=== PATIENT | female | born 1970 | race Hispanic/Latino ===

== ENCOUNTER 2017-07-29 16:16 | Emergency (ER) | payer MEDICAID ==
[~2017-07-29 16:16] MED LIST: ALBU8.5H3 IH; AMOX-429 PO; BUDE10.2 IH; IPRA3AMP4 IH; MONT10TA21 PO; PRED20TA3 PO
[2017-07-29] MEDS ORDERED: DEXAMETHASONE SOD PHOSPHATE 10MG/ML 1ML VIAL ONE (16:45)
== END 2017-07-29 18:10 | disposition home or self-care (01) ==
LOC: EDH 16:16
DX: J45.909 Unspecified asthma, uncomplicated (principal); Z88.1 Allergy status to other antibiotic agents
CPT/HCPCS: 96372; 99283; J1100

== ENCOUNTER 2017-09-25 22:08 | Emergency (ER) | payer MEDICAID ==
[~2017-09-25 22:08] MED LIST changes: +IPRA3AMP24 IH; -IPRA3AMP4 IH
[2017-09-25] MEDS ORDERED: PREDNISONE 20 MG TABLET ONE (23:02)
[2017-09-25] MEDS ORDERED: IPRATROPIUM/ALBUTEROL SULFATE 3 ML SOLUTION IH ONE (23:02)
[2017-09-25 23:09] LABS: BASOPHILS % (AUTO) 0.6 % (0.0-5.0); HEMATOCRIT 33.1 % (36-48); LYMPHOCYTES % (AUTO) 18.6 % (21.0-51.0); MEAN CORPUSCULAR HEMOGLOBIN 24.5 pg (27.0-33.0); MEAN CORPUSCULAR HGB CONC 32.4 g/dL (32.0-36.0); MEAN CORPUSCULAR VOLUME 75.8 fL (79-99); MONOCYTES % (AUTO) 5.9 % (3.0-13.0); NEUTROPHILS % (AUTO) 72.9 % (40.0-77.0); PLATELET COUNT (AUTO) 445 K/uL (130-400); RED BLOOD CELL COUNT(AUTO) 4.37 MIL/uL (4.00-5.50); RED CELL DISTRIBUTION WIDTH 17.2 % (11.0-15.5); WHITE BLOOD COUNT (AUTO) 18.6 K/uL (4.8-10.8)
[2017-09-25 23:22] LABS: CREATININE 0.7 mg/dL (0.5-1.5); POTASSIUM 4.1 mmol/L (3.5-5.1)
[2017-09-26 00:31] LABS: APPEARANCE,URINE Clear (CLEAR); BILIRUBIN,URINE Negative (NEGATIVE); COLOR,URINE Yellow (YELLOW); GLUCOSE, URINE (UA) Negative (NEGATIVE); KETONES,URINE Negative (NEGATIVE); LEUKOCYTE ESTERASE ,URINE Negative (NEGATIVE); NITRATE,URINE Negative (NEGATIVE); OCCULT BLOOD,URINE Large (NEGATIVE); PH,URINE 5.5 (5.0-8.0); PROTEIN,URINE Negative (NEGATIVE); UROBILINOGEN,URINE 0.2 mg/dL (0.2-1.0)
[2017-09-26 00:40] LABS: HCG,QUAL RESULT NEGATIVE (NEGATIVE)
[2017-09-26 01:13] LABS: BACTERIA,URINE None Seen /HPF (None Seen); MUCUS,URINE Few LPF (None Seen); RBC,URINE TNTC /HPF (0-1); SQUAMOUS EPITHELIAL CELL,UR Few /HPF (0-2); WBC,URINE None Seen /HPF (0-1)
== END 2017-09-26 01:43 | disposition home or self-care (01) ==
LOC: EDH 22:08
DX: J20.9 Acute bronchitis, unspecified (principal); Z88.8 Allergy status to other drugs, medicaments and biological substances; Z98.890 Other specified postprocedural states
CPT/HCPCS: 36415; 71045; 80048; 81001; 81025; 85025; 93005

== ENCOUNTER 2019-04-27 20:56 | Emergency (ER) | payer MEDICAID, OTHER ==
[2019-04-27] MEDS ORDERED: METHYLPREDNISOLONE SOD SUCC 125MG/2ML VIAL ONE (21:29)
[2019-04-27] MEDS ORDERED: IPRATROPIUM/ALBUTEROL SULFATE 3 ML SOLUTION IH ONE (21:51)
[2019-04-27 22:02] LABS: BASOPHILS % (AUTO) 0.5 % (0.0-5.0); EOSINOPHILS % (AUTO) 1.5 % (0.0-8.0); HEMATOCRIT 32.3 % (36-48); LYMPHOCYTES % (AUTO) 19.3 % (21.0-51.0); MEAN CORPUSCULAR HEMOGLOBIN 23.7 pg (27.0-33.0); MEAN CORPUSCULAR HGB CONC 32.5 g/dL (32.0-36.0); MONOCYTES % (AUTO) 11.2 % (3.0-13.0); NEUTROPHILS % (AUTO) 67.5 % (40.0-77.0); PLATELET COUNT (AUTO) 421 K/uL (130-400); RED BLOOD CELL COUNT(AUTO) 4.42 MIL/uL (4.00-5.50); WHITE BLOOD COUNT (AUTO) 10.5 K/uL (4.8-10.8)
[2019-04-27 22:16] LABS: CREATININE 0.7 mg/dL (0.5-1.5); POTASSIUM 3.4 mmol/L (3.5-5.1)
[2019-04-27 22:22] LABS: PLATELET MORPHOLOGY LARGE PLTS PRESENT
[2019-04-28] MEDS ORDERED: CEFTRIAXONE SODIUM 1 GM ONE (00:19)
[2019-04-28] MEDS ORDERED: AZITHROMYCIN 250 MG TABLET PO ONE (00:21)
== END 2019-04-28 01:50 | disposition home or self-care (01) ==
LOC: EDH 20:56
DX: J45.21 Mild intermittent asthma with (acute) exacerbation (principal); J18.9 Pneumonia, unspecified organism; Z88.1 Allergy status to other antibiotic agents; Z98.890 Other specified postprocedural states
CPT/HCPCS: 36415; 71045; 80048; 85025; 87804 ×2; 93005; 94640; 96374; 96375; 99285; J0696; J2930

== ENCOUNTER 2019-09-24 13:43 | Emergency (ER) | payer SELFPAY ==
[2019-09-24] MEDS ORDERED: ALBUTEROL INHALER 90MCG/INH IH ONE (14:54)
[2019-09-24] MEDS ORDERED: DEXAMETHASONE SOD PHOSPHATE 4 MG/ML 1ML VIAL ONE (14:59)
== END 2019-09-24 16:18 | disposition home or self-care (01) ==
LOC: EDH 13:43
DX: J45.901 Unspecified asthma with (acute) exacerbation (principal); Z88.1 Allergy status to other antibiotic agents; Z98.890 Other specified postprocedural states
CPT/HCPCS: 71045; 93005; 96372; 99283; J1100

== ENCOUNTER 2020-01-28 21:41 | Emergency (ER) | payer SELFPAY ==
[2020-01-28] MEDS ORDERED: DEXAMETHASONE SOD PHOSPHATE 10MG/ML 1ML VIAL ONE (22:34)
== END 2020-01-28 22:45 | disposition home or self-care (01) ==
LOC: EDH 21:41
DX: J45.909 Unspecified asthma, uncomplicated (principal); Z88.1 Allergy status to other antibiotic agents; Z98.890 Other specified postprocedural states
CPT/HCPCS: 96372; 99283; J1100

== ENCOUNTER 2020-04-15 14:46 | Emergency (ER) | payer SELFPAY ==
[2020-04-15 15:49] LABS: APPEARANCE,URINE Cloudy (CLEAR); BILIRUBIN,URINE Negative (NEGATIVE); COLOR,URINE Yellow (YELLOW); GLUCOSE, URINE (UA) Negative (NEGATIVE); KETONES,URINE Negative (NEGATIVE); LEUKOCYTE ESTERASE ,URINE Trace (NEGATIVE); NITRATE,URINE Negative (NEGATIVE); OCCULT BLOOD,URINE Negative (NEGATIVE); PROTEIN,URINE Negative (NEGATIVE)
[2020-04-15 16:00] LABS: HCG,QUAL RESULT NEGATIVE (NEGATIVE)
[2020-04-15 16:10] LABS: RBC,URINE 0-1 /HPF (0-1)
[2020-04-15 16:12] LABS: BACTERIA,URINE Few /HPF (None Seen); SQUAMOUS EPITHELIAL CELL,UR Moderate /HPF (0-2)
[2020-04-15] MEDS ORDERED: METHYLPREDNISOLONE SOD SUCC 40MG/ML 1ML ONE (16:26)
[2020-04-15] MEDS ORDERED: IPRATROPIUM/ALBUTEROL SULFATE 3 ML SOLUTION IH ONE (16:56)
== END 2020-04-15 17:32 | disposition home or self-care (01) ==
LOC: EDH 14:46
DX: J45.21 Mild intermittent asthma with (acute) exacerbation (principal)
CPT/HCPCS: 71045; 81001; 81025; 87088; 94640; 96372; 99284; J2920

== ENCOUNTER 2020-07-17 14:08 | Emergency (ER) | payer SELFPAY ==
[2020-07-17] MEDS ORDERED: IPRATROPIUM/ALBUTEROL SULFATE 3 ML SOLUTION IH ONE (14:17)
[2020-07-17 14:44] LABS: BASOPHILS % (AUTO) 0.4 % (0.0-5.0); EOSINOPHILS % (AUTO) 6.8 % (0.0-8.0); HEMATOCRIT 37.2 % (36-48); LYMPHOCYTES % (AUTO) 21.8 % (21.0-51.0); MEAN CORPUSCULAR HEMOGLOBIN 21.8 pg (27.0-33.0); MEAN CORPUSCULAR HGB CONC 29.8 g/dL (32.0-36.0); MEAN CORPUSCULAR VOLUME 73.1 fL (79-99); MONOCYTES % (AUTO) 5.3 % (3.0-13.0); NEUTROPHILS % (AUTO) 65.4 % (40.0-77.0); PLATELET COUNT (AUTO) 497 K/uL (130-400); RED BLOOD CELL COUNT(AUTO) 5.09 MIL/uL (4.00-5.50); RED CELL DISTRIBUTION WIDTH 16.6 % (11.0-15.5); WHITE BLOOD COUNT (AUTO) 15.7 K/uL (4.8-10.8)
[2020-07-17] MEDS ORDERED: DEXAMETHASONE SOD PHOSPHATE 10MG/ML 1ML VIAL ONE (14:46)
[2020-07-17] MEDS ORDERED: CEFTRIAXONE SODIUM 1 GM ONE (14:46)
[2020-07-17] MEDS ORDERED: ACETAMINOPHEN-CODEINE 300/30MG TAB ONE (14:47)
[2020-07-17] MEDS ORDERED: AZITHROMYCIN 250 MG TABLET PO ONE (14:47)
[2020-07-17] MEDS ORDERED: SODIUM CHLORIDE 0.9% 100 ML IV ONE (14:48)
[2020-07-17] MEDS ORDERED: SODIUM CHLORIDE 0.9% 1000ML 1,000 ML IV ONE (14:48)
[2020-07-17 14:53] LABS: CREATININE 0.6 mg/dL (0.5-1.5); POTASSIUM 3.9 mmol/L (3.5-5.1)
[2020-07-17 14:54] LABS: INR 1.01 (0.85-1.15); PROTHROMBIN TIME 10.8 SEC (9.6-11.6)
[2020-07-17 14:55] LABS: PARTIAL THROMBOPLASTIN TIME 25.4 SEC (26.3-35.5)
[2020-07-17 14:57] LABS: ALBUMIN 3.3 g/dL (3.5-5.0); BILIRUBIN,TOTAL 0.1 mg/dL (0.2-1.0); TOTAL PROTEIN, SERUM 9.1 g/dL (6.0-8.3)
[2020-07-17 15:06] LABS: B-TYPE NATRIURETIC PEPTIDE 33 pg/mL (0-100)
[2020-07-17] MEDS ORDERED: ALBUTEROL SULFATE 0.083% 2.5 MG/3 ML INH IH ONE ×2 (15:31→15:53)
== END 2020-07-17 16:52 | disposition home or self-care (01) ==
LOC: EDH 14:08
DX: J45.909 Unspecified asthma, uncomplicated (principal); Z20.828 Contact with and (suspected) exposure to other viral communicable diseases; Z88.1 Allergy status to other antibiotic agents
CPT/HCPCS: 36415; 71045; 80053; 83880; 84145; 84484; 85025; 85610; 85730; 87040 ×2; 87426; 93005; 94640 ×3; 96365; 96366; 96375; 99285; J0696; J1100; J7030; U0003

== ENCOUNTER 2020-12-21 14:22 | Emergency (ER) | payer OTHER ==
[~2020-12-21] VITALS: Ht 139.7 cm; Wt 79.4 kg
[2020-12-21 14:25] VITALS: BP 126/70
[2020-12-21] MEDS ORDERED: SOLU-MEDROL 125MG VIAL IVP ONE (19:15)
[2020-12-21] MEDS ORDERED: 0.9%NACL 1000ML 1,000 ML IV ONE (19:15)
[2020-12-21 19:44] LABS: BASOPHILS % (AUTO) 0.4 % (0.0-5.0); EOSINOPHILS % (AUTO) 6.2 % (0.0-8.0); HEMATOCRIT 35.3 % (36-48); LYMPHOCYTES % (AUTO) 16.4 % (21.0-51.0); MEAN CORPUSCULAR HEMOGLOBIN 21.2 pg (27.0-33.0); MEAN CORPUSCULAR HGB CONC 29.2 g/dL (32.0-36.0); MEAN CORPUSCULAR VOLUME 72.6 fL (79-99); MONOCYTES % (AUTO) 4.8 % (3.0-13.0); NEUTROPHILS % (AUTO) 71.9 % (40.0-77.0); PLATELET COUNT (AUTO) 558 K/uL (130-400); RED BLOOD CELL COUNT(AUTO) 4.86 MIL/uL (4.00-5.50); RED CELL DISTRIBUTION WIDTH 16.5 % (11.0-15.5); WHITE BLOOD COUNT (AUTO) 19.8 K/uL (4.8-10.8)
[2020-12-21 19:54] LABS: CREATININE 0.5 mg/dL (0.5-1.5); POTASSIUM 3.9 mmol/L (3.5-5.1)
[2020-12-21] MEDS ORDERED: ALBUTEROL 0.042% 1.25MG/3ML IH ONE (19:57)
[2020-12-21] MEDS ORDERED: IPRATROPIUM/ALBUTEROL SULFATE 3 ML SOLUTION IH ONE (19:57)
[2020-12-21 20:00] LABS: ALBUMIN 3.1 g/dL (3.5-5.0); BILIRUBIN,TOTAL 0.3 mg/dL (0.2-1.0); TOTAL PROTEIN, SERUM 8.4 g/dL (6.0-8.3)
[2020-12-21] MEDS ORDERED: CEFTRIAXONE 1G VIAL IVP SCH (20:30)
[2020-12-21] MEDS ORDERED: AZITHROMYCIN 250 MG TABLET PO ONE (20:30)
[2020-12-21] MEDS ORDERED: SOLU-MEDROL 125MG VIAL ONE (20:38)
[2020-12-21] MEDS ORDERED: AMOX-429 PO (21:08)
[2020-12-21] MEDS ORDERED: ADV250 IH (21:08)
[2020-12-21] MEDS ORDERED: ALBUTEROL 0.042% 1.25MG/3ML IH SCH (22:00)
[2020-12-21 22:15] VITALS: BP 124/72
== END 2020-12-21 22:20 | disposition home or self-care (01) ==
LOC: EDH 14:22
DX: J45.901 Unspecified asthma with (acute) exacerbation (principal); J18.9 Pneumonia, unspecified organism; Z88.1 Allergy status to other antibiotic agents; Z79.52 Long term (current) use of systemic steroids; Z79.899 Other long term (current) drug therapy; Z79.51 Long term (current) use of inhaled steroids
CPT/HCPCS: 36415; 71045; 80053; 85025; 94640 ×3; 94664; 96361; 96374; 96375; 99285; J0696; J2930; J7030

== ENCOUNTER 2022-01-30 15:51 | Emergency (ER) | payer OTHER ==
[~2022-01-30] VITALS: Ht 134.6 cm; Wt 79.4 kg
[~2022-01-30 15:51] MED LIST changes: +ADV250 IH
[2022-01-30 15:52] VITALS: BP 120/56
[2022-01-30] MEDS ORDERED: SULF1TAB42 PO ×2 (16:02→16:04)
== END 2022-01-30 16:28 | disposition home or self-care (01) ==
LOC: EDH 15:51
DX: L03.211 Cellulitis of face (principal); J45.909 Unspecified asthma, uncomplicated; Z79.51 Long term (current) use of inhaled steroids; Z79.52 Long term (current) use of systemic steroids; Z79.899 Other long term (current) drug therapy; Z88.1 Allergy status to other antibiotic agents

== ENCOUNTER 2022-02-06 18:58 | Inpatient (IN) | payer OTHER ==
[~2022-02-06] VITALS: Ht 134.6 cm; Wt 79.6 kg
[~2022-02-06 18:58] MED LIST changes: +SULF1TAB42 PO
[2022-02-06 19:42] LABS: BASOPHILS % (AUTO) 0.4 % (0.0-5.0); EOSINOPHILS % (AUTO) 7.4 % (0.0-8.0); HEMATOCRIT 35.9 % (36-48); LYMPHOCYTES % (AUTO) 21.1 % (21.0-51.0); MEAN CORPUSCULAR HGB CONC 30.1 g/dL (32.0-36.0); MEAN CORPUSCULAR VOLUME 73.3 fL (79-99); MONOCYTES % (AUTO) 5.9 % (3.0-13.0); NEUTROPHILS % (AUTO) 64.7 % (40.0-77.0); PLATELET COUNT (AUTO) 497 K/uL (130-400); RED CELL DISTRIBUTION WIDTH 16.4 % (11.0-15.5); WHITE BLOOD COUNT (AUTO) 16.7 K/uL (4.8-10.8)
[2022-02-06 19:50] LABS: CREATININE 0.9 mg/dL (0.5-1.5)
[2022-02-06 19:55] LABS: ALBUMIN 3.2 g/dL (3.5-5.0); TOTAL PROTEIN, SERUM 9.2 g/dL (6.0-8.3)
[2022-02-06 20:33] LABS: APPEARANCE,URINE CLEAR (CLEAR); BILIRUBIN,URINE NEGATIVE (NEGATIVE); COLOR,URINE YELLOW (YELLOW); GLUCOSE, URINE (UA) NEGATIVE (NEGATIVE); KETONES,URINE NEGATIVE (NEGATIVE); LEUKOCYTE ESTERASE ,URINE NEGATIVE (NEGATIVE); NITRATE,URINE NEGATIVE (NEGATIVE); OCCULT BLOOD,URINE NEGATIVE (NEGATIVE); PROTEIN,URINE NEGATIVE (NEGATIVE); UROBILINOGEN,URINE 0.2 mg/dL (0.2-1.0)
[2022-02-06] MEDS ORDERED: 0.9% NACL 500ML IV.SOLN 500 ML IV ONE (21:00)
[2022-02-06] MEDS ORDERED: CLINDAMYCIN IVPB 600MG/50ML 50 ML IV SCH (21:00)
[2022-02-06] MEDS ORDERED: IPRATROPIUM/ALBUTEROL SULFATE 3 ML SOLUTION IH ONE (22:00)
[2022-02-07] MEDS ORDERED: ACETAMINOPHEN WITH CODEINE 1 TAB TAB PO PRN
[2022-02-07] MEDS ORDERED: VANCOMYCIN PROTOCOL PER PHARMACY IV PRN
[2022-02-07] MEDS ORDERED: GUAIFENESIN-DM 200/20 MG 10 ML PO PRN
[2022-02-07] MEDS ORDERED: ACETAMINOPHEN 325 MG TAB PO PRN
[2022-02-07] MEDS ORDERED: LACTULOSE 20 GM/30 ML UDCUP PO PRN
[2022-02-07] MEDS ORDERED: MAG/ALUM/SIMETH 30 ML UDCUP PO PRN
[2022-02-07] MEDS ORDERED: ONDANSETRON 4MG INJ IV PRN
[2022-02-07] MEDS ORDERED: ZOLPIDEM TARTRATE 5 MG TAB PO PRN
[2022-02-07] MEDS ORDERED: NITROGLYCERIN 0.4 MG SL TAB SL PRN
[2022-02-07] MEDS: DIPHENHYDRAMINE HCL 25 MG CAPSULE PO PRN ×3 (00:29→23:46)
[2022-02-07] MEDS ORDERED: VANCOMYCIN 1G/250ML KIT 250 ML IV ONE (00:30)
[2022-02-07] MEDS: ZOSYN 3.375GM+NS 50ML 50 ML IV SCH ×3 (05:00→21:24)
[2022-02-07] MEDS: ENOXAPARIN SODIUM 40 MG/0.4 ML SYRINGE SQ SCH (08:09)
[2022-02-07] MEDS: FAMOTIDINE 20MG VIAL IV SCH ×2 (08:09→21:25)
[2022-02-07] MEDS: ALBUTEROL 0.083% 2.5 MG/3 ML INH IH PRN ×2 (08:11→18:33)
[2022-02-07 13:05] VITALS: BP 116/72
[2022-02-07 15:15] VITALS: BP 124/65
[2022-02-07 20:29] VITALS: BP 120/66
[2022-02-07] MEDS: VANCOMYCIN 500MG+NS 100ML 100 ML IV SCH (21:24)
[2022-02-07 23:45] VITALS: BP 121/73
[2022-02-08 04:31] VITALS: BP 101/63
[2022-02-08] MEDS: ZOSYN 3.375GM+NS 50ML 50 ML IV SCH ×3 (05:38→21:00)
[2022-02-08 08:00] VITALS: BP 106/76
[2022-02-08] MEDS: ENOXAPARIN SODIUM 40 MG/0.4 ML SYRINGE SQ SCH (08:40)
[2022-02-08] MEDS: VANCOMYCIN 500MG+NS 100ML 100 ML IV SCH ×2 (08:40→21:00)
[2022-02-08] MEDS: DIPHENHYDRAMINE HCL 25 MG CAPSULE PO PRN (08:40)
[2022-02-08] MEDS: FAMOTIDINE 20MG VIAL IV SCH ×2 (08:40→21:00)
[2022-02-08 09:07] LABS: ALBUMIN 2.8 g/dL (3.5-5.0); CREATININE 0.8 mg/dL (0.5-1.5); POTASSIUM 3.8 mmol/L (3.5-5.1)
[2022-02-08 10:00] LABS: BASOPHILS % (AUTO) 0.4 % (0.0-5.0); EOSINOPHILS % (AUTO) 11.5 % (0.0-8.0); HEMATOCRIT 33.3 % (36-48); MEAN CORPUSCULAR HEMOGLOBIN 22.3 pg (27.0-33.0); MEAN CORPUSCULAR HGB CONC 29.7 g/dL (32.0-36.0); NEUTROPHILS % (AUTO) 58.7 % (40.0-77.0); PLATELET COUNT (AUTO) 516 K/uL (130-400); RED BLOOD CELL COUNT(AUTO) 4.44 MIL/uL (4.00-5.50); RED CELL DISTRIBUTION WIDTH 16.5 % (11.0-15.5); WHITE BLOOD COUNT (AUTO) 11.4 K/uL (4.8-10.8)
[2022-02-08 12:00] VITALS: BP 110/69
[2022-02-08 16:33] VITALS: BP 99/61
[2022-02-08 20:58] VITALS: BP 113/74
[2022-02-08 23:32] VITALS: BP 122/80
[2022-02-09 04:21] VITALS: BP 122/71
[2022-02-09] MEDS: ZOSYN 3.375GM+NS 50ML 50 ML IV SCH (05:56)
[2022-02-09 08:00] VITALS: BP 117/75
[2022-02-09] MEDS: FAMOTIDINE 20MG VIAL IV SCH (08:49)
[2022-02-09] MEDS: ENOXAPARIN SODIUM 40 MG/0.4 ML SYRINGE SQ SCH (08:49)
[2022-02-09] MEDS ORDERED: VANCOMYCIN 1.25 GM/250 ML BAG 250 ML IV SCH (09:00)
[2022-02-09] MEDS ORDERED: AMOX1TAB16 PO (09:04)
[2022-02-09 11:48] VITALS: BP 131/72
== END 2022-02-09 13:10 | disposition home or self-care (01) | DRG 603 ==
LOC: EDH 18:58 → EDHIP 18:59 → 4BH 02-07 13:01
PROVIDERS: ADMIT Hospitalist; ATTEND Hospitalist
DX: L03.211 Cellulitis of face (principal); Z68.41 Body mass index [BMI] 40.0-44.9, adult; D72.829 Elevated white blood cell count, unspecified; D64.9 Anemia, unspecified; E66.9 Obesity, unspecified; J45.909 Unspecified asthma, uncomplicated; Z82.0 Family history of epilepsy and other diseases of the nervous system; Z82.3 Family history of stroke; Z82.49 Family history of ischemic heart disease and other diseases of the circulatory system; Z82.5 Family history of asthma and other chronic lower respiratory diseases; Z83.3 Family history of diabetes mellitus
CPT/HCPCS: 36415; 70486; 80053; 80202; 81003; 83605; 85025; 86140; 87040; 94640; G0378; J1650; J2543; J3370; J3490; Q0163

== ENCOUNTER 2022-04-07 16:44 | Emergency (ER) | payer OTHER ==
[~2022-04-07] VITALS: Ht 134.6 cm; Wt 79.4 kg
[~2022-04-07 16:44] MED LIST changes: -AMOX-429 PO; +AMOX1TAB16 PO; -BUDE10.2 IH; -IPRA3AMP24 IH; -MONT10TA21 PO; -PRED20TA3 PO; -SULF1TAB42 PO
[2022-04-07] MEDS ORDERED: CEFTRIAXONE 1G VIAL IM ONE (17:30)
[2022-04-07] MEDS ORDERED: PHENAZOPYRIDINE HCL 200 MG TABLET PO ONE (17:30)
[2022-04-07 17:39] VITALS: BP 135/82
[2022-04-07] MEDS ORDERED: LIDOCAINE HCL-MPF 0.5% 50ML VIAL IJ ONE (17:47)
[2022-04-07 17:55] LABS: APPEARANCE,URINE CLEAR (CLEAR); BILIRUBIN,URINE NEGATIVE (NEGATIVE); COLOR,URINE LIGHT-YELLOW (YELLOW); GLUCOSE, URINE (UA) NEGATIVE (NEGATIVE); KETONES,URINE NEGATIVE (NEGATIVE); LEUKOCYTE ESTERASE ,URINE NEGATIVE Leu/uL (NEGATIVE); NITRATE,URINE NEGATIVE (NEGATIVE); OCCULT BLOOD,URINE LARGE (NEGATIVE); PROTEIN,URINE NEGATIVE (NEGATIVE); UROBILINOGEN,URINE 0.2 mg/dL (0.2-1.0)
[2022-04-07 18:00] LABS: MUCUS,URINE RARE LPF (None Seen); RBC,URINE 26-50 /HPF (0-1); SQUAMOUS EPITHELIAL CELL,UR FEW /HPF (0-2)
[2022-04-07] MEDS ORDERED: CEPH500B PO (18:05)
[2022-04-07] MEDS ORDERED: PHEN-847 PO (18:05)
== END 2022-04-07 18:31 | disposition home or self-care (01) ==
LOC: EDH 16:44
DX: N39.0 Urinary tract infection, site not specified (principal)
CPT/HCPCS: 99283; 81001; 96372; J0696; J3490

== ENCOUNTER 2022-06-27 12:17 | Emergency (ER) | payer BC, OTHER ==
[~2022-06-27] VITALS: Ht 139.7 cm; Wt 79.4 kg
[~2022-06-27 12:17] MED LIST changes: +ALBU2.5V2 IH; -ALBU8.5H3 IH; +ALBU90AE2 IH; +CETI10CA5 PO; +FLUT16H NASAL; +METH4TAB3 PO; +MONT-39 PO; +NEBU-305 MC
[2022-06-27 15:33] VITALS: BP 135/80
[2022-06-27] MEDS ORDERED: IBUP-2070 PO (15:57)
[2022-06-27] MEDS ORDERED: CYCL10TA16 PO (15:57)
== END 2022-06-27 16:06 | disposition home or self-care (01) ==
LOC: EDH 12:17
DX: M54.6 Pain in thoracic spine (principal); B07.9 Viral wart, unspecified; J45.909 Unspecified asthma, uncomplicated; Z88.1 Allergy status to other antibiotic agents

== ENCOUNTER 2022-10-01 10:22 | Emergency (ER) | payer BC ==
[~2022-10-01] VITALS: Ht 134.6 cm; Wt 79.4 kg
[~2022-10-01 10:22] MED LIST changes: -ADV250 IH; -AMOX1TAB16 PO; -FLUT16H NASAL; +FLUT1BLS IH; -METH4TAB3 PO; -NEBU-305 MC
[2022-10-01] MEDS ORDERED: IPRATROPIUM/ALBUTEROL SULFATE 3 ML SOLUTION IH ONE (11:00)
[2022-10-01] MEDS ORDERED: SOLU-MEDROL 40MG VIAL IVP ONE (11:00)
[2022-10-01] MEDS ORDERED: ALBUTEROL 0.083% 2.5 MG/3 ML INH IH ONE (12:00)
[2022-10-01] MEDS ORDERED: PRED20TA3 PO (12:41)
[2022-10-01] MEDS ORDERED: ALBUHFA IH (12:41)
[2022-10-01 12:54] VITALS: BP 131/69
== END 2022-10-01 13:06 | disposition home or self-care (01) ==
LOC: EDH 10:22
DX: J45.901 Unspecified asthma with (acute) exacerbation (principal); E66.01 Morbid (severe) obesity due to excess calories; Z79.51 Long term (current) use of inhaled steroids; Z79.52 Long term (current) use of systemic steroids; Z88.1 Allergy status to other antibiotic agents; Z68.41 Body mass index [BMI] 40.0-44.9, adult
CPT/HCPCS: 99284; 96374; 93005; 94640 ×2; J2920

== ENCOUNTER 2023-05-14 13:24 | Emergency (ER) | payer BC ==
[~2023-05-14] VITALS: Ht 134.6 cm; Wt 81.6 kg
[~2023-05-14 13:24] MED LIST changes: +ALBUHFA IH; +PRED20TA3 PO
[2023-05-14 16:07] LABS: RAPID GROUP A STREP negative (NEGATIVE)
[2023-05-14 16:16] LABS: SARS-CoV-2, RNA, NAAT NEGATIVE SARS CoV-2 (NEGATIVE)
[2023-05-14 16:22] LABS: INFLUENZA TYPE A Negative For Type A (NEGATIVE); INFLUENZA TYPE B Negative For Type B (NEGATIVE)
[2023-05-14] MEDS ORDERED: PRED10TA3 PO (17:49)
[2023-05-14] MEDS ORDERED: PREDNISONE 20 MG TABLET PO ONE (18:00)
[2023-05-14] MEDS ORDERED: ALBUTEROL 0.083% 2.5 MG/3 ML INH IH ONE (18:00)
[2023-05-14 18:56] VITALS: PULSE 101; RESP 16
[2023-05-14 20:41] VITALS: BP 137/74; PULSE 87; RESP 16; O2SAT 97
== END 2023-05-14 20:44 | disposition home or self-care (01) ==
LOC: EDH 13:24
DX: J45.901 Unspecified asthma with (acute) exacerbation (principal); R05.9 Cough, unspecified; J45.909 Unspecified asthma, uncomplicated; E66.9 Obesity, unspecified; Z79.51 Long term (current) use of inhaled steroids; Z79.52 Long term (current) use of systemic steroids; Z88.1 Allergy status to other antibiotic agents; Z20.822 Contact with and (suspected) exposure to COVID-19
CPT/HCPCS: 99283; 71045; 87635; 87880; 87804 ×2; 94640; C9803

== ENCOUNTER 2023-08-24 15:42 | Emergency (ER) | payer BC, OTHER ==
[~2023-08-24] VITALS: Ht 134.6 cm; Wt 81.6 kg
[~2023-08-24 15:42] MED LIST changes: +PRED10TA3 PO
[2023-08-24] MEDS ORDERED: CLIN-141 PO (16:26)
[2023-08-24] MEDS: CLINDAMYCIN 150 MG CAP PO ONE (16:51)
[2023-08-24 17:05] VITALS: BP 128/75; PULSE 88; RESP 18; O2SAT 99
== END 2023-08-24 17:08 | disposition home or self-care (01) ==
LOC: EDH 15:42
DX: S00.86XA Insect bite (nonvenomous) of other part of head, initial encounter (principal); J45.909 Unspecified asthma, uncomplicated; Z79.899 Other long term (current) drug therapy; Z98.890 Other specified postprocedural states; Z88.8 Allergy status to other drugs, medicaments and biological substances; W57.XXXA Bitten or stung by nonvenomous insect and other nonvenomous arthropods, initial encounter; Y93.89 Activity, other specified; Y92.89 Other specified places as the place of occurrence of the external cause; Y99.8 Other external cause status

== ENCOUNTER 2023-09-03 00:36 | Emergency (ER) | payer OTHER ==
[~2023-09-03] VITALS: Ht 134.6 cm; Wt 81.6 kg
[~2023-09-03 00:36] MED LIST changes: +CLIN-141 PO
[2023-09-03] MEDS ORDERED: ALBUTEROL 0.083% 2.5 MG/3 ML INH IH STA (00:47)
[2023-09-03] MEDS: ALBUTEROL 0.083% 2.5 MG/3 ML INH IH ONE (01:02)
[2023-09-03 01:03] VITALS: PULSE 93; RESP 14
[2023-09-03] MEDS: 0.9%NACL 1000ML 1,000 ML IV ONE (01:06)
[2023-09-03] MEDS: SOLU-MEDROL 125MG VIAL IVP ONE (01:07)
[2023-09-03 01:14] LABS: RAPID GROUP A STREP negative (NEGATIVE)
[2023-09-03 01:19] LABS: BASOPHILS # (AUTO) 0.07 K/uL (0.00-0.20); BASOPHILS % (AUTO) 0.4 % (0.0-5.0); EOSINOPHILS % (AUTO) 4.5 % (0.0-8.0); HEMATOCRIT 40.2 % (36-48); IMMATURE GRANULOCYTE ABSOLUTE 0.07 K/uL (0-1); LYMPHOCYTES # (AUTO) 3.5 K/uL (1.0-4.8); LYMPHOCYTES % (AUTO) 22.5 % (21.0-51.0); MEAN CORPUSCULAR HEMOGLOBIN 27.4 pg (27.0-33.0); MEAN CORPUSCULAR HGB CONC 32.3 g/dL (32.0-36.0); MEAN CORPUSCULAR VOLUME 84.8 fL (79-99); MONOCYTES # (AUTO) 0.9 K/uL (0.1-1.0); MONOCYTES % (AUTO) 5.7 % (3.0-13.0); NEUTROPHILS # (AUTO) 10.4 K/uL (1.8-7.7); NEUTROPHILS % (AUTO) 66.5 % (40.0-77.0); PLATELET COUNT (AUTO) 413 K/uL (130-400); RED BLOOD CELL COUNT(AUTO) 4.74 MIL/uL (4.00-5.50); RED CELL DISTRIBUTION WIDTH 13.9 % (11.0-15.5); WHITE BLOOD COUNT (AUTO) 15.7 K/uL (4.8-10.8)
[2023-09-03 01:19] LABS: SARS-CoV-2, RNA, NAAT NEGATIVE SARS CoV-2 (NEGATIVE)
[2023-09-03 01:21] LABS: INFLUENZA TYPE A Negative For Type A (NEGATIVE); INFLUENZA TYPE B Negative For Type B (NEGATIVE)
[2023-09-03 02:12] LABS: CREATININE 0.8 mg/dL (0.5-1.5); POTASSIUM 3.8 mmol/L (3.5-5.1)
[2023-09-03 02:23] VITALS: BP 126/60; PULSE 98; RESP 20; O2SAT 97
[2023-09-03 02:25] LABS: MAGNESIUM 1.8 mg/dL (1.80-2.40); THYROID STIMULATING HORMONE 2.03 uIU/mL (0.36-3.74)
[2023-09-03] MEDS ORDERED: METH4TAB3 PO (02:35)
[2023-09-03] MEDS ORDERED: AUD IH (02:35)
== END 2023-09-03 02:57 | disposition home or self-care (01) ==
LOC: EDH 00:36
DX: J45.901 Unspecified asthma with (acute) exacerbation (principal); Z20.822 Contact with and (suspected) exposure to COVID-19; Z79.899 Other long term (current) drug therapy; Z98.890 Other specified postprocedural states; Z88.8 Allergy status to other drugs, medicaments and biological substances
CPT/HCPCS: 99284; 96374; 71045; 87635; 96361; 84443; 83735; 80048; 85025; 87880; 87804 ×2; 36415; 94640; J7030; J2930

== ENCOUNTER 2023-09-27 14:14 | Emergency (ER) | payer OTHER ==
[~2023-09-27] VITALS: Ht 137.2 cm; Wt 81.6 kg
[~2023-09-27 14:14] MED LIST changes: +AUD IH; +METH4TAB3 PO
[2023-09-27] MEDS ORDERED: IBUP-2077 PO (18:17)
[2023-09-27] MEDS: IBUPROFEN 800 MG TAB PO ONE (18:49)
[2023-09-27 18:59] VITALS: BP 138/76; PULSE 80; RESP 16; O2SAT 97
== END 2023-09-27 19:02 | disposition home or self-care (01) ==
LOC: EDH 14:14
DX: S20.469A Insect bite (nonvenomous) of unspecified back wall of thorax, initial encounter (principal); L08.9 Local infection of the skin and subcutaneous tissue, unspecified; J45.909 Unspecified asthma, uncomplicated; Z79.899 Other long term (current) drug therapy; Z98.890 Other specified postprocedural states; Z88.8 Allergy status to other drugs, medicaments and biological substances; W57.XXXA Bitten or stung by nonvenomous insect and other nonvenomous arthropods, initial encounter; Y93.89 Activity, other specified; Y92.89 Other specified places as the place of occurrence of the external cause; Y99.8 Other external cause status

== ENCOUNTER 2024-06-01 19:33 | Inpatient (IN) | payer BC ==
[~2024-06-01] VITALS: Ht 137.2 cm; Wt 82.2 kg
[~2024-06-01 19:33] MED LIST changes: -ALBU90AE2 IH; +ALBU90AE3 IH; +IBUP-2077 PO
[2024-06-01 20:03] VITALS: PULSE 92; RESP 19
--- NOTE | 2024-06-01 20:09 | HMCIMG ---
CHEST 1VW CLINICAL HISTORY: Dyspnea/SOB COMPARISON: 09/03/2023 TECHNIQUE: Single view of the chest was obtained. FINDINGS: Lungs are clear. The cardiac size and mediastinum are unremarkable. The bony structures are within normal limits. IMPRESSION: No acute cardiopulmonary process identified.
--- NOTE | 2024-06-01 20:10 | ERN ---
General Chief Complaint: Cough Stated Complaint: BRONCHITIS FEVER Time Seen by MD: 19:42 History of Present Illness Initial Comments Mrs Escobedo is a 53-year-old female with a significant past medical history obesity, asthma who presents today with a chief complaint of shortness of breath. Patient reports that she has been having cough and enlarged cervical lymph nodes since 6 days prior to . Patient states that she otherwise feels mildly short of breath. Allergies: Coded Allergies: levofloxacin (Unverified Allergy, Mild, RASH, 08/27/15) Home Meds Active Scripts Ibuprofen (Ibuprofen 800 mg Tab) 800 Mg Tab, 800 MG PO Q8H PRN for fever or pain, #30 TAB 0 Refills Prov:BRAXTON RUST NP 09/27/23 Clindamycin HCl (Clindamycin HCl) 300 Mg Capsule, 1 CAP PO QID for 10 Days, #40 CAP 0 Refills Prov:BRAXTON RUST NP 09/27/23 Methylprednisolone (Medrol) 4 Mg Tab.ds.pk, 4 MG PO AD, #1 PACK 0 Refills Prov:SHANIA RESTREPO Sr., MD 09/03/23 Albuterol Sulfate (Albuterol Sulfate) 2.5 Mg/0.5 Ml Vial.neb, 2.5 MG IH Q6H for wheezing/sob, #20 INH 2 Refills Prov:SHANIA RESTREPO Sr., MD 09/03/23 Clindamycin HCl (Clindamycin HCl) 300 Mg Capsule, 1 CAP PO QID for 10 Days, #40 CAP 0 Refills Prov:BRAXTON RUST NP 08/24/23 Prednisone (Prednisone) 10 Mg Tablet, 10 MG PO DAILY, #7 TAB Prov:COLUMBA RAHMAN Jr. AIR PUMPER 05/14/23 Albuterol Sulfate (Ventolin Hfa/Proventil Hfa/Proair Hfa) 90 Mcg/Puff Puff, 1-2 PUFF IH Q4H PRN for SHORTNESS OF BREATH for 5 Days, #1 INH 3 Refills PHARMACY TO DISPENSE 1 INHALER FOR USE Prov:BERT العراقي MD 10/01/22 Prednisone (Prednisone) 20 Mg Tablet, 40 MG PO DAILY for 7 Days, #14 TAB 0 Refills Prov:BERT العراقي MD 10/01/22 Fluticasone/Vilanterol (Breo Ellipta 200-25 Mcg INH) 1 Each Blst.w.dev, 1 EACH IH DAILY for ASTHMA for 30 Days, #30 DAYS 1 Refill Prov:PEPITO SEALS Jr., MD 08/11/22 Montelukast Sodium (Montelukast Sodium) 10 Mg Tablet, 10 MG PO HS for ASTHMA for 30 Days, #30 TAB 0 Refills Prov:PEPITO SEALS Jr., MD 08/11/22 Cetirizine HCl (Zyrtec) 10 Mg Capsule, 10 MG PO DAILY for 30 Days, #30 CAP 1 Refill Prov:PEPITO SEALS Jr., MD 08/11/22 Albuterol Sulfate (Albuterol Sulfate) 2.5 Mg/3 Ml Vial.neb, 2.5 MG IH QIDP PRN for SHORTNESS OF BREATH/WHEEZING for 14 Days, #42 INH 1 Refill Prov:PEPITO SEALS Jr., MD 08/11/22 Albuterol Sulfate (Proair Digihaler) 90 Mcg Aer.pw.bas, 90 MCG IH QIDP PRN for SHORTNESS OF BREATH/WHEEZING for 30 Days, #30 DAYS 3 Refills Prov:PEPITO SEALS Jr., MD 08/11/22 Past Medical History Past Medical History: Asthma, Bronchitis Medical History Other: SEASONAL ALLERGIES, Obesity Past Surgical History: Additional History Comments: mother with pulmonary fibrosis, sister with cholesterol Family History Family History: Negative Social History Social History: Negative, Other Female( History) History: Not Applicable ROS Dictation Constitutional: Negative for fever,chills, and weight loss Eyes: Negative for injury, pain,redness, and discharge ENT: Negative for injury,pain or swelling Cardiovascular: Negative for chest pain, palpitations, and edema Respiratory: Positive for shortness of breath Abdomen/GI: Negative for abdominal pain, nausea, vomiting, diarrhea, and constipation Back: Negative for injury and pain : Negative for injury, bleeding and discharge MS/Extremity: Negative for injury and deformity Skin: Negative for rash, and discoloration Neuro: Negative for headache, weakness, numbness, tingling, and seizure Psych: Negative for suicide ideation, homicidal ideation, and hallucinations Physical Exam Physical Exam Dictation General: awake, alert, NAD Head/Face: Normocephalic, atraumatic Eyes: PERRL, EOMI, vision at baseline ENT: Large cervical nodes Neck: Trachea midline, supple, Cardiovascular: RRR, normal S1/S2, No MRGs, no JVD Respiratory: Diminished breath sounds bilaterally Abdomen: Soft, non-tender, non-distended, normal bowel sounds, no guarding or rebound. Skin: Warm, dry, normal turgor, no rash MS/Extremity: Pulses equal, no cyanosis Neuro: COAx4, GCS 15, strength 5/5 Results Laboratory and Microbiology Lab and Micro Result Laboratory Tests Test 06/01/24 20:04 06/01/24 20:25 06/01/24 20:29 White Blood Count 32.5 K/uL (4.8-10.8) *H Red Blood Count 5.00 MIL/uL (4.00-5.50) Hemoglobin 13.6 g/dL (12.0-16.0) Hematocrit 42.5 % (36-48) Mean Corpuscular Volume 85.0 fL (79-99) Mean Corpuscular Hemoglobin 27.2 pg (27.0-33.0) Mean Corpuscular Hemoglobin Concent 32.0 g/dL (32.0-36.0) Red Cell Distribution Width 14.2 % (11.0-15.5) Platelet Count 395 K/uL (130-400) Mean Platelet Volume 8.4 fL (7.5-10.5) Immature Granulocyte % (Auto) 0.6 % (0-1) Neutrophils (%) (Auto) 74.9 % (40.0-77.0) Lymphocytes (%) (Auto) 14.9 % (21.0-51.0) L Monocytes (%) (Auto) 6.6 % (3.0-13.0) Eosinophils (%) (Auto) 2.6 % (0.0-8.0) Basophils (%) (Auto) 0.4 % (0.0-5.0) Neutrophils # (Auto) 24.4 K/uL (1.8-7.7) H Lymphocytes # (Auto) 4.8 K/uL (1.0-4.8) Monocytes # (Auto) 2.2 K/uL (0.1-1.0) H Eosinophils # (Auto) 0.83 K/uL (0.00-0.70) H Basophils # (Auto) 0.12 K/uL (0.00-0.20) Absolute Immature Granulocyte (auto 0.21 K/uL (0-1) Segmented Neutrophils % 75 % (40-70) H Lymphocytes % (Manual) 14 % (22-44) L Monocytes % (Manual) 7 % (2-9) Eosinophils % (Manual) 4 % (1-6) Nucleated Red Blood Cells 0.0 % (0.0-0.19) Differential Comment MANUAL DIFFERENTIAL White Cell Morphology Comment CONSISTENT W/DIFF Platelet Morphology Comment ADEQUATE Red Blood Cell Morphology NORMAL Sodium Level 142 mmol/L (136-145) Potassium Level 4.1 mmol/L (3.5-5.1) Chloride Level 105 mmol/L (101-111) Carbon Dioxide Level 29 mmol/L (21-32) Blood Urea Nitrogen 18 mg/dL (7-18) Creatinine 0.9 mg/dL (0.5-1.0) Glomerular Filtration Rate Calc 76 mL/min (>90) Random Glucose 101 mg/dL (70-105) Total Calcium 8.8 mg/dL (8.5-10.1) B-Type Natriuretic Peptide 17 pg/mL (0-100) Lactic Acid Level 2.5 mmol/L (0.8-2.5) Influenza Type A Antigen Negative For Type A Influenza Type B Antigen Negative For Type B SARS-CoV-2, RNA, NAAT NEGATIVE SARS CoV-2 Group A Streptococcus Rapid negative (NEGATIVE) MDM Patient appears to have asthma exacerbation with the elevated white count. Patient will be admitted for further evaluation and care. MDM: Differential diagnosis: Asthma exacerbation, upper respiratory infection Rationale: Tests considered and ordered secondary to shared decision making include: labs, ECG and radiology Previous outside records reviewed: Old ER visits. Risk of complication and/or morbidity or mortality of patient management: None Medications-Per medication reconciliation Need for hospitalization: Patient does meet criteria for hospitalization. Need for emergency major/minor surgery: No There are no social concerns with this patient. Prescription drug management Prescriptions will include symptomatic care Patient's prior external medical records from other ER visits were reviewed by me as indicated. Prior testing and results from previous visits were reviewed. Prior tests were taken into account with medical decision making and resource utilization, independent historian/historians were used to obtain complete medical history. I independently interpreted the test that were performed, results were reviewed by me and considered findings on radiology if ordered. Medical management and examination interpretation discussions were had by me with other qualified healthcare professionals as indicated for the patient's care. ED Course Orders Procedure Category Date Status Time Cbc With Differential LAB 06/01/24 In Process 19:48 B-Type Natriuretic LAB 06/01/24 In Process Peptide 19:48 Chest 1vw RAD 06/01/24 Resulted 19:48 Lactated Ringers PHA 06/01/24 In Process 1000ml (Lactated 20:00 Ipratropium/Albuterol PHA 06/01/24 Complete Neb (Duoneb) 20:00 Methylprednisolone PHA 06/01/24 Complete Succ 125mg (Solu-Medr 20:00 Basic Metabolic Panel LAB 06/01/24 Complete 19:48 Ketorolac PHA 06/01/24 Complete Tromethamine 15mg/Ml 20:00 Rapid (Group A Strep) LAB 06/01/24 Complete 20:01 Influenza Type A & B, LAB 06/01/24 Complete Rapid 20:01 Covid Rna Naat LAB 06/01/24 Complete 20:01 Cetirizine Hcl 5 Mg PHA 06/02/24 In Process Tablet (Zyrtec 5 Mg 09:00 Sodium Chloride 3% PHA 06/01/24 Complete Inh (Sodium Chloride 20:30 Manual Differential LAB 06/01/24 In Process 20:04 Lactic Acid LAB 06/01/24 Complete 20:19 Blood Cult MISHA 06/01/24 In Process 20:19 Acetaminophen 500mg PHA 06/01/24 Complete Tab (Tylenol 500mg T 20:30 Acetaminophen 500mg PHA 06/01/24 Complete Tab (Tylenol 500mg T 20:20 Cetirizine Hcl 5 Mg PHA 06/01/24 Complete Tablet (Zyrtec 5 Mg 20:21 Blood Cult MISHA 06/01/24 In Process 20:27 Current Medications Medications (Trade) Dose Ordered Sig/Keisha Route PRN Reason Start Time Stop Time Status Last Admin Dose Admin Acetaminophen (TYLenol 500MG TAB) 500 mg STK-MED ONCE .ROUTE 06/01/24 20:20 06/01/24 20:20 DC Acetaminophen (TYLenol 500MG TAB) 1,000 mg ONCE ONCE PO 06/01/24 20:30 06/01/24 20:31 DC 06/01/24 20:33 Albuterol (DUOneb) 1 udvial ONCE ONCE IH 06/01/24 20:00 06/01/24 20:01 DC 06/01/24 20:53 Cetirizine HCl (ZYRtec 5 MG TABLET) 5 mg STK-MED ONCE PO 06/01/24 20:21 06/01/24 20:21 DC Cetirizine HCl (ZYRtec 5 MG TABLET) 10 mg DAILY PO 06/02/24 09:00 07/02/24 08:59 06/01/24 20:32 Ketorolac Tromethamine (toRADol) 15 mg ONCE ONCE IV 06/01/24 20:00 06/01/24 20:01 DC 06/01/24 20:14 Lactated Ringer's 1,000 ml @ 125 mls/hr ONCE ONCE IV 06/01/24 20:00 06/02/24 03:59 06/01/24 20:15 Methylprednisolone Sodium Succinate (Solu-medROL 125MG) 125 mg ONCE ONCE IVP 06/01/24 20:00 06/01/24 20:01 DC 06/01/24 20:14 Sodium Chloride (Sodium Chloride 3% Inh) 4ML ONCE ONCE IH 06/01/24 20:30 06/01/24 20:31 DC 06/01/24 20:53 Vital Signs Date Time Temp Pulse Resp B/P (MAP) Pulse Ox O2 Delivery O2 Flow Rate FiO2 06/01/24 20:33 101.7 06/01/24 20:16 101.7 120 24 139/72 97 Room Air* 0 21 06/01/24 19:34 100.4 134 20 143/80 95 Room Air DX & DISP Disposition: Inpatient Departure Impression: Primary Impression: Asthma exacerbation, mild Additional Impression: Sepsis Condition: Stable Referrals: SELF,REFERRAL (PCP) PEPITO LANDAVERDE MD Jun 01, 2024 20:10
[2024-06-01 20:12] LABS: BASOPHILS # (AUTO) 0.12 K/uL (0.00-0.20); BASOPHILS % (AUTO) 0.4 % (0.0-5.0); EOSINOPHILS # (AUTO) 0.83 K/uL (0.00-0.70); EOSINOPHILS % (AUTO) 2.6 % (0.0-8.0); HEMATOCRIT 42.5 % (36-48); IMMATURE GRANULOCYTE ABSOLUTE 0.21 K/uL (0-1); LYMPHOCYTES # (AUTO) 4.8 K/uL (1.0-4.8); LYMPHOCYTES % (AUTO) 14.9 % (21.0-51.0); MEAN CORPUSCULAR HEMOGLOBIN 27.2 pg (27.0-33.0); MONOCYTES # (AUTO) 2.2 K/uL (0.1-1.0); MONOCYTES % (AUTO) 6.6 % (3.0-13.0); NEUTROPHILS # (AUTO) 24.4 K/uL (1.8-7.7); NEUTROPHILS % (AUTO) 74.9 % (40.0-77.0); PLATELET COUNT (AUTO) 395 K/uL (130-400); RED CELL DISTRIBUTION WIDTH 14.2 % (11.0-15.5)
[2024-06-01] MEDS: ketOROlac 15MG/ML VIAL (15MG/ML) IV ONE (20:14)
[2024-06-01] MEDS: Solu-medROL 125MG VIAL IVP ONE (20:14)
[2024-06-01 20:15] LABS: WHITE BLOOD COUNT (AUTO) 32.5 K/uL (4.8-10.8)
[2024-06-01] MEDS: LACTATED RINGERS 1000ML 1,000 ML IV ONE (20:15)
--- NOTE | 2024-06-01 20:18 | NUR ---
SEPSIS ALERT ACTIVATED AT THIS TIME
[2024-06-01 20:30] LABS: CREATININE 0.9 mg/dL (0.5-1.0); POTASSIUM 4.1 mmol/L (3.5-5.1)
[2024-06-01] MEDS: ceTIRIzine HCL 5 MG TABLET PO SCH (20:32)
[2024-06-01] MEDS: acetaMINOPHEN 500 MG TABLET ONE (20:33)
[2024-06-01] MEDS: ceTIRIzine HCL 5 MG TABLET PO ONE (20:33)
[2024-06-01] MEDS: acetaMINOPHEN 500 MG TABLET PO ONE (20:33)
[2024-06-01 20:49] LABS: RAPID GROUP A STREP negative (NEGATIVE)
[2024-06-01] MEDS: IpraTROPium/alBUTERol SULFATE 3 ML SOLUTION IH ONE (20:53)
[2024-06-01] MEDS: SODIUM CHLORIDE 3% FOR INHALATION 4 ML/AMP VIAL.NEB IH ONE (20:53)
[2024-06-01 20:54] LABS: SARS-CoV-2, RNA, NAAT NEGATIVE SARS CoV-2 (NEGATIVE)
[2024-06-01 20:58] LABS: B-TYPE NATRIURETIC PEPTIDE 17 pg/mL (0-100)
[2024-06-01 21:01] LABS: INFLUENZA TYPE A Negative For Type A (NEGATIVE); INFLUENZA TYPE B Negative For Type B (NEGATIVE)
[2024-06-01 21:02] LABS: EOSINOPHILS % (MANUAL) 4 % (1-6); LYMPHOCYTES % (MANUAL) 14 % (22-44); MONOCYTES % (MANUAL) 7 % (2-9); SEGMENTED NEUTROPHILS % 75 % (40-70); TOTAL CELLS COUNTED 100
[2024-06-01 21:03] LABS: MAN.DIFF COMMENT-IMPRESSION MANUAL DIFFERENTIAL; PLATELET MORPHOLOGY COMMENT ADEQUATE; WBC MORPHOLOGY CONSISTENT W/DIFF
[2024-06-01 21:05] VITALS: TEMP 99.6
[2024-06-01] MEDS: AZITHROMYCIN 250 MG TABLET PO SCH (21:24)
[2024-06-01] MEDS: cefTRIAXone 1G VIAL IVPB ONE (21:24)
--- NOTE | 2024-06-01 22:17 | HP ---
[facility] HISTORY AND PHYSICAL Date of Service: Jun 01, 2024 Time of Service: 22:17 PCP: Self-referral HISTORY OF PRESENT ILLNESS: This is a 53-year-old female with a significant medical history of bronchitis, seasonal allergies, obesity and asthma presents to the ED for complaints of shortness of breaths, sore throat, cough and enlarged right cervical lymph nodes which started six days prior to .Patient states she has been sick prior to and she went to an urgnt care which she received and IM injection of steroid and was told she has acute pharyngitis and Bronchitis she said and was sent home and was told to see her PCP but she has not been able to follow up a PCP and patient started having fever since yesterday and states it is painful to swallow.and having headache as well for which she took Ibuprofen and came to the ED for evaluation. Upon arrival to ER patient's temperature 101.7, heart rate 134 BP 143/80 saturation 95% on room air. Latest vital signs temperature 98.6, heart rate 103, blood pressure 108/55 saturation 96% on room air. Labs: WBC 32.5, hemoglobin 13.6, hematocrit 42, platelet count 395. Chemistries unremarkable. BNP 17 lactic acid 2.5 influenza a and B negative, SARs COVID negative rapid strep throat negative. Chest x-ray result is unremarkable. While in the ER patient received cetirizine 5 mg p.o., Tylenol 1000 mg p.o., Rocephin 1 g IV, azithromycin 250 mg p.o. started on LR at 125 mL/hour, albuterol neb, Solu-Medrol 125 mg IV and Toradol 15 mg IV. ER called and recommended to admit the patient. REVIEW OF SYSTEMS CONSTITUTIONAL: Complaints of fever Denies night sweats. No unintentional weight loss reported. NEUROLOGICAL: Complain of headache Denies amaurosis fugax, motor weakness, sensory deficit, vertigo/spinning sensation, gait abnormalities, or tremors. ENT: Complain of sore throat and voice hoarseness No hearing loss, otalgia, otorrhea, rhinitis, rhinorrhea CARDIOVASCULAR: Denies any exertional angina, dyspnea on exertion, orthopnea, paroxysmal nocturnal dyspnea, palpitations, life-threatening arrhythmias, claudication. PULMONARY: Complain of mild shortness of breath and productive cough Denies hemoptysis, pleuritic chest pain. SLEEP: Denies morning headaches, daytime somnolence or napping. Denies difficulty falling asleep, staying asleep, waking from sleep. Denies knowledge of snoring. GASTROINTESTINAL: Denies any type of dysphagia to either liquids or solids. Denies nausea, vomiting, pyrosis, early satiety, abdominal pain, diarrhea, constipation, or changes in stool consistency or caliber. Denies coffee-ground emesis, hematemesis, hematochezia, or melanotic stools. GENITOURINARY: Denies frequency, urgency, nocturia, hematuria or incontinence (Storage/Irritative symptoms.) Low urinary stream, straining to void, urinary intermittency or hesitancy, splitting of the voiding stream, terminal dribbling. ENDOCRINOLOGIC: Denies polyuria, polydipsia, polyphagia or heat/cold intolerances. HEMATOLOGIC: Denies thrombophilia/previous clots, or coagulopathy/bleeding disorders. ONCOLOGIC: Denies personal history of malignancy. DERMATOLOGIC: Denies rashes or pruritus. PSYCHIATRIC: Denies any suicidal or homicidal ideation. Denies hallucinations. PAST MEDICAL HISTORY: [ Asthma, bronchitis, seasonal allergies and morbid obesity ] PAST SURGICAL HISTORY: [ ] PAST SOCIAL HISTORY: [ Patient lives with . Patient denies alcohol tobacco and recreational drug use ] FAMILY HISTORY: [Noncontributory ] Coded Allergies: levofloxacin (Unverified Allergy, Mild, RASH, 08/27/15) PHYSICAL EXAM GENERAL APPEARANCE: The patient is awake, alert, and oriented, in no acute cardiopulmonary distress. NEUROLOGICAL: Cranial nerves II-XII grossly intact. Motor is 5/5 in bilateral upper and lower extremities proximal to distal. No sensory deficits. HEENT: Face is symmetric. Pupils are equal and reactive. Extraocular movements are intact. NECK: Supple. No JVD. No thyromegaly. No submental, submandibular, pre-/postauricular, occipital or supraclavicular lymphadenopathy. CHEST: Normal chest expansion. No Telemetry. LUNGS: Absence of any rales, rhonchi or any wheezing. CARDIOVASCULAR: Regular. S1 and S2 normal. No appreciable rubs, murmurs or gallops. ABDOMEN: Soft, nontender, and nondistended. There is no rebound, voluntary guarding, or rigidity. : Deferred. No [place]. EXTREMITIES: Non-edematous and not cyanotic. No clubbing. Good capillary refill. SKIN: No skin breakdown. Vital Sign (Last 24 Hours) 06/01/24 21:05 Temp 99.7 Pulse 105 Resp 20 B/P (MAP) 155/64 Pulse Ox 95 O2 Delivery Room Air* O2 Flow Rate 0 FiO2 21 LABS: Laboratory: Test 06/01/24 20:29 06/01/24 20:25 06/01/24 20:04 Range/Units Influenza Type A Antigen Negative For Type A NEGATIVE Influenza Type B Antigen Negative For Type B NEGATIVE SARS-CoV-2, RNA, NAAT NEGATIVE SARS CoV-2 NEGATIVE Group A Streptococcus Rapid negative NEGATIVE Lactic Acid Level 2.5 0.8-2.5 mmol/L White Blood Count 32.5 *H 4.8-10.8 K/uL Red Blood Count 5.00 4.00-5.50 MIL/uL Hemoglobin 13.6 12.0-16.0 g/dL Hematocrit 42.5 36-48 % Mean Corpuscular Volume 85.0 79-99 fL Mean Corpuscular Hemoglobin 27.2 27.0-33.0 pg Mean Corpuscular Hemoglobin Concent 32.0 32.0-36.0 g/dL Red Cell Distribution Width 14.2 11.0-15.5 % Platelet Count 395 130-400 K/uL Mean Platelet Volume 8.4 7.5-10.5 fL Immature Granulocyte % (Auto) 0.6 0-1 % Neutrophils (%) (Auto) 74.9 40.0-77.0 % Lymphocytes (%) (Auto) 14.9 L 21.0-51.0 % Monocytes (%) (Auto) 6.6 3.0-13.0 % Eosinophils (%) (Auto) 2.6 0.0-8.0 % Basophils (%) (Auto) 0.4 0.0-5.0 % Neutrophils # (Auto) 24.4 H 1.8-7.7 K/uL Lymphocytes # (Auto) 4.8 1.0-4.8 K/uL Monocytes # (Auto) 2.2 H 0.1-1.0 K/uL Eosinophils # (Auto) 0.83 H 0.00-0.70 K/uL Basophils # (Auto) 0.12 0.00-0.20 K/uL Absolute Immature Granulocyte (auto 0.21 0-1 K/uL Segmented Neutrophils % 75 H 40-70 % Lymphocytes % (Manual) 14 L 22-44 % Monocytes % (Manual) 7 2-9 % Eosinophils % (Manual) 4 1-6 % Nucleated Red Blood Cells 0.0 0.0-0.19 % Differential Comment MANUAL DIFFERENTIAL White Cell Morphology Comment CONSISTENT W/DIFF Platelet Morphology Comment ADEQUATE Red Blood Cell Morphology NORMAL Sodium Level 142 136-145 mmol/L Potassium Level 4.1 3.5-5.1 mmol/L Chloride Level 105 101-111 mmol/L Carbon Dioxide Level 29 21-32 mmol/L Blood Urea Nitrogen 18 7-18 mg/dL Creatinine 0.9 0.5-1.0 mg/dL Glomerular Filtration Rate Calc 76 >90 mL/min Random Glucose 101 70-105 mg/dL Total Calcium 8.8 8.5-10.1 mg/dL B-Type Natriuretic Peptide 17 0-100 pg/mL Current Medications Medications (Trade) Dose Ordered Sig/Keisah Route PRN Reason Start Time Stop Time Status Last Admin Dose Admin Azithromycin (Zithromax) 250 mg Q24H PO 06/01/24 21:30 06/11/24 21:29 06/01/24 21:24 250 MG Cetirizine HCl (ZYRtec 5 MG TABLET) 10 mg DAILY PO 06/02/24 09:00 07/02/24 08:59 06/01/24 20:32 10 MG DIAGNOSTICS / RADIOLOGY: [ ] ASSESSMENT: Mild asthma exacerbation POA Acute pharyngitis with right cervical lymph adenopathy POA Sepsis POA Morbid obesity POA Severe leukocytosis POA PLAN: We will admit patient in medical telemetry We will start on clear liquid diet advanced as tolerated We will start NS @ 100 ml / hr x2 bags and re evaluate We will start patient on Rocephin and azithromycin 250 mg p.o. We will start patient on Solu-Medrol 20 mg IV b.i.d. x2 doses and evaluate We will start on Famotidine 20 mg IV bid for GI prophylaxis We will replace electrolytes as needed per protocol We will add prn medication for fever,pain,cough ,nausea and vomiting We will reconcile home meds once medlist available We will request labs in am Further orders to follow depending on above results Case discussed with attending physician and came up with above treatment and plan of care. ADVANCED CARE PLANNING 1. Which of the following were discussed? Hospice Care - No Therapeutic options - Yes Advance Directives - No Other discussions - 2. Discussed with who? Patient 3. Voluntary nature of this service was explained to the patient? Yes 4. Amount of time spent - __20 5. Reviewed by Physician? (if this service was performed by NPP) Yes Patient seen and examined by me. Agree with note by CUSTOMER SUCCESS ASSOCIATE SEE ADDITIONAL ORDERS PER CHART DISCUSSED WITH NURSING STAFF MILLY ROBLES [employer] Jun 01, 2024 22:17
[2024-06-01] MEDS ORDERED: guaiFENesin-DM 200/20MG 10ML PO PRN (22:30)
[2024-06-01] MEDS ORDERED: ondanSETRON 4MG INJ IV PRN (22:30)
[2024-06-01] MEDS ORDERED: cefTRIAXone 1G VIAL 1 GM in 0.9%NACL 50ML 50 ML IV SCH (22:30)
[2024-06-01] MEDS ORDERED: acetaMINOPHEN 325 MG TAB PO PRN ×2 (22:30)
--- NOTE | 2024-06-01 23:35 | NUR ---
REPORT GIVEN TO NURSE CHAVEZ
[2024-06-01] MEDS: 0.9%NACL 1000ML 1,000 ML IV SCH (23:38)
[2024-06-01 23:45] VITALS: O2SAT 95
[2024-06-02] VITALS (17 sets, daily range): BP systolic 101–130; BP diastolic 41–75; PULSE 80–98; RESP 16–20; TEMP 97.4–98.1; O2SAT 96–98
[2024-06-02] MEDS: IpraTROPium/alBUTERol SULFATE 3 ML SOLUTION IH SCH (02:58)
[2024-06-02 04:27] LABS: BASOPHILS # (AUTO) 0.04 K/uL (0.00-0.20); BASOPHILS % (AUTO) 0.2 % (0.0-5.0); EOSINOPHILS # (AUTO) 0.01 K/uL (0.00-0.70); HEMATOCRIT 38.2 % (36-48); IMMATURE GRANULOCYTE ABSOLUTE 0.28 K/uL (0-1); LYMPHOCYTES # (AUTO) 1.7 K/uL (1.0-4.8); LYMPHOCYTES % (AUTO) 6.5 % (21.0-51.0); MEAN CORPUSCULAR HEMOGLOBIN 26.8 pg (27.0-33.0); MEAN CORPUSCULAR HGB CONC 31.4 g/dL (32.0-36.0); MEAN CORPUSCULAR VOLUME 85.3 fL (79-99); MONOCYTES # (AUTO) 0.2 K/uL (0.1-1.0); MONOCYTES % (AUTO) 0.6 % (3.0-13.0); NEUTROPHILS # (AUTO) 23.9 K/uL (1.8-7.7); NEUTROPHILS % (AUTO) 91.6 % (40.0-77.0); PLATELET COUNT (AUTO) 367 K/uL (130-400); RED BLOOD CELL COUNT(AUTO) 4.48 MIL/uL (4.00-5.50)
[2024-06-02 05:26] LABS: ALBUMIN 2.6 g/dL (3.5-5.0); BILIRUBIN,TOTAL 0.2 mg/dL (0.2-1.0); CREATININE 0.7 mg/dL (0.5-1.0); MAGNESIUM 1.9 mg/dL (1.80-2.40); POTASSIUM 4.4 mmol/L (3.5-5.1); TOTAL PROTEIN, SERUM 7.2 g/dL (6.0-8.3)
[2024-06-02 05:34] LABS: ERYTHROCYTE SEDIMENTATION RATE 70 MM/HR (0-30)
[2024-06-02] MEDS ORDERED: ceTIRIzine HCL 5 MG TABLET PO SCH (09:00)
[2024-06-02] MEDS: Solu-medROL 40MG VIAL IVP SCH (10:07)
[2024-06-02] MEDS: FAMOTIDINE 20MG VIAL IV SCH (10:07)
--- NOTE | 2024-06-02 13:35 | PN ---
[facility] PROGRESS NOTE Date of Service: Jun 02, 2024 Time of Service: 13:33 SUBJECTIVE: [ ] 06/02/24 patient was seen and examined case discussed with RN. She was slightly feeling better still hoarse is coughing REVIEW OF SYSTEMS CONSTITUTIONAL: Complaints of fever Denies night sweats. No unintentional weight loss reported. NEUROLOGICAL: Complain of headache Denies amaurosis fugax, motor weakness, sensory deficit, vertigo/spinning sensation, gait abnormalities, or tremors. ENT: Complain of sore throat and voice hoarseness No hearing loss, otalgia, otorrhea, rhinitis, rhinorrhea CARDIOVASCULAR: Denies any exertional angina, dyspnea on exertion, orthopnea, paroxysmal nocturnal dyspnea, palpitations, life-threatening arrhythmias, claudication. PULMONARY: Complain of mild shortness of breath and productive cough Denies hemoptysis, pleuritic chest pain. SLEEP: Denies morning headaches, daytime somnolence or napping. Denies difficulty falling asleep, staying asleep, waking from sleep. Denies knowledge of snoring. GASTROINTESTINAL: Denies any type of dysphagia to either liquids or solids. Denies nausea, vomiting, pyrosis, early satiety, abdominal pain, diarrhea, co nstipation, or changes in stool consistency or caliber. Denies coffee-ground emesis, hematemesis, hematochezia, or melanotic stools. GENITOURINARY: Denies frequency, urgency, nocturia, hematuria or incontinence (Storage/Irritative symptoms.) Low urinary stream, straining to void, urinary intermittency or hesitancy, splitting of the voiding stream, terminal dribbling. ENDOCRINOLOGIC: Denies polyuria, polydipsia, polyphagia or heat/cold intolerances. HEMATOLOGIC: Denies thrombophilia/previous clots, or coagulopathy/bleeding disorders. ONCOLOGIC: Denies personal history of malignancy. DERMATOLOGIC: Denies rashes or pruritus. PSYCHIATRIC: Denies any suicidal or homicidal ideation. Denies hallucinations. PHYSICAL EXAM GENERAL APPEARANCE: The patient is awake, alert, and oriented, in no acute car diopulmonary distress. NEUROLOGICAL: Cranial nerves II-XII grossly intact. Motor is 5/5 in bilateral upper and lower extremities proximal to distal. No sensory deficits. HEENT: Face is symmetric. Pupils are equal and reactive. Extraocular movements are intact. NECK: Supple. No JVD. No thyromegaly. No submental, submandibular, pre- /postauricular, occipital or supraclavicular lymphadenopathy. CHEST: Normal chest expansion. No Telemetry. LUNGS: Absence of any rales, rhonchi or any wheezing. CARDIOVASCULAR: Regular. S1 and S2 normal. No appreciable rubs, murmurs or gallops. ABDOMEN: Soft, nontender, and nondistended. There is no rebound, voluntary guarding, or rigidity. : Deferred. No [place]. EXTREMITIES: Non-edematous and not cyanotic. No clubbing. Good capillary refill. SKIN: No skin breakdown. Vital Signs (last 8hr) Date Time Temp Pulse Resp B/P (MAP) Pulse Ox O2 Delivery O2 Flow Rate FiO2 06/02/24 11:46 97.3 98 20 115/68 97 Room Air 06/02/24 10:05 86 18 06/02/24 08:00 97.5 87 18 110/65 96 Room Air 06/02/24 06:46 85 16 N/A Room Air 21 06/02/24 06:45 85 18 LABS: Laboratory: Test 06/02/24 04:13 06/01/24 20:29 06/01/24 20:04 Range/Units White Blood Count 26.0 H 4.8-10.8 K/uL Red Blood Count 4.48 4.00-5.50 MIL/uL Hemoglobin 12.0 12.0-16.0 g/dL Hematocrit 38.2 36-48 % Mean Corpuscular Volume 85.3 79-99 fL Mean Corpuscular Hemoglobin 26.8 L 27.0-33.0 pg Mean Corpuscular Hemoglobin Concent 31.4 L 32.0-36.0 g/dL Red Cell Distribution Width 14.0 11.0-15.5 % Platelet Count 367 130-400 K/uL Mean Platelet Volume 8.6 7.5-10.5 fL Immature Granulocyte % (Auto) 1.1 H 0-1 % Neutrophils (%) (Auto) 91.6 H 40.0-77.0 % Lymphocytes (%) (Auto) 6.5 L 21.0-51.0 % Monocytes (%) (Auto) 0.6 L 3.0-13.0 % Eosinophils (%) (Auto) 0.0 0.0-8.0 % Basophils (%) (Auto) 0.2 0.0-5.0 % Neutrophils # (Auto) 23.9 H 1.8-7.7 K/uL Lymphocytes # (Auto) 1.7 1.0-4.8 K/uL Monocytes # (Auto) 0.2 0.1-1.0 K/uL Eosinophils # (Auto) 0.01 0.00-0.70 K/uL Basophils # (Auto) 0.04 0.00-0.20 K/uL Absolute Immature Granulocyte (auto 0.28 0-1 K/uL Nucleated Red Blood Cells 0.0 0.0-0.19 % Erythrocyte Sedimentation Rate 70 H 0-30 MM/HR Sodium Level 139 136-145 mmol/L Potassium Level 4.4 3.5-5.1 mmol/L Chloride Level 107 101-111 mmol/L Carbon Dioxide Level 24 21-32 mmol/L Blood Urea Nitrogen 17 7-18 mg/dL Creatinine 0.7 0.5-1.0 mg/dL Glomerular Filtration Rate Calc 103 >90 mL/min Random Glucose 181 #H 70-105 mg/dL Lactic Acid Level 1.5 0.8-2.5 mmol/L Total Calcium 8.7 8.5-10.1 mg/dL Magnesium Level 1.90 1.80-2.40 mg/dL Total Bilirubin 0.2 0.2-1.0 mg/dL Aspartate Amino Transf (AST/SGOT) 13 10-37 U/L Alanine Aminotransferase (ALT/SGPT) 21 12-78 U/L Alkaline Phosphatase 128 50-136 U/L Total Protein 7.2 6.0-8.3 g/dL Albumin 2.6 L 3.5-5.0 g/dL Influenza Type A Antigen Negative For Type A NEGATIVE Influenza Type B Antigen Negative For Type B NEGATIVE SARS-CoV-2, RNA, NAAT NEGATIVE SARS CoV-2 NEGATIVE Group A Streptococcus Rapid negative NEGATIVE Segmented Neutrophils % 75 H 40-70 % Lymphocytes % (Manual) 14 L 22-44 % Monocytes % (Manual) 7 2-9 % Eosinophils % (Manual) 4 1-6 % Differential Comment MANUAL DIFFERENTIAL White Cell Morphology Comment CONSISTENT W/DIFF Platelet Morphology Comment ADEQUATE Red Blood Cell Morphology NORMAL B-Type Natriuretic Peptide 17 0-100 pg/mL Current Medications Medications (Trade) Dose Ordered Sig/Keisha Route PRN Reason Start Time Stop Time Status Last Admin Dose Admin Acetaminophen (TYLenol 325MG TAB) 650 mg Q4H PRN PO MILD PAIN (1-3) 06/01/24 22:30 07/01/24 22:29 Acetaminophen (TYLenol 325MG TAB) 650 mg Q6H PRN PO TEMPERATURE GREATER THAN 101.5 06/01/24 22:30 07/01/24 22:29 Albuterol (DUOneb) 1 udvial [id number] IH 06/02/24 02:00 07/02/24 01:59 06/02/24 10:05 1 UDVIAL Azithromycin (Zithromax) 250 mg Q24H PO 06/01/24 21:30 06/01/24 22:49 DC 06/01/24 21:24 250 MG Ceftriaxone Sodium 1 gm/ Sodium Chloride 50 ml @ 100 mls/hr Q24H IV 06/01/24 22:30 06/01/24 23:02 DC Ceftriaxone Sodium (ROCEphine 1G INJ) 1 gm Q24H IVPB 06/02/24 21:30 06/12/24 21:29 Cetirizine HCl (ZYRtec 5 MG TABLET) 10 mg DAILY PO 06/02/24 09:00 07/02/24 08:59 06/02/24 10:07 10 MG Cetirizine HCl (ZYRtec 5 MG TABLET) 10 mg DAILY PO 06/02/24 09:00 06/01/24 22:51 DC Famotidine (Pepcid 20mg Vial) 20 mg Q24H IV 06/02/24 09:00 07/02/24 08:59 06/02/24 10:07 20 MG Guaifenesin/ Dextromethorphan (RobiTUSSin DM 200/20MG 10ML) 10 ml Q4H PRN PO COUGH 06/01/24 22:30 07/01/24 22:29 Methylprednisolone Sodium Succinate (Solu-medROL 40MG) 20 mg BID IVP 06/02/24 09:00 07/02/24 08:59 06/02/24 10:07 20 MG Ondansetron HCl (zoFRAN 4MG INJ) 4 mg Q6H PRN IV NAUSEA/VOMITING 06/01/24 22:30 07/01/24 22:29 Sodium Chloride 1,000 ml @ 100 mls/hr Q10H IV 06/01/24 22:30 07/01/24 22:29 06/02/24 10:07 100 MLS/HR DIAGNOSTICS / RADIOLOGY: [ ] ASSESSMENT: Mild asthma exacerbation POA Acute pharyngitis with right cervical lymph adenopathy POA Sepsis POA Morbid obesity POA Severe leukocytosis POA PLAN: medical telemetry Advance diet NS @ 100 ml / hr x2 bags and re evaluate continue Rocephin and azithromycin 250 mg p.o. Solu-Medrol 20 mg IV b.i.d. x2 doses and evaluate Famotidine 20 mg IV bid for GI prophylaxis We will replace electrolytes as needed per protocol We will add prn medication for fever,pain,cough ,nausea and vomiting We will reconcile home meds once medlist available We will request labs in am Further orders to follow depending on above results FLORINA ARMENTA MD Jun 02, 2024 13:35
--- NOTE | 2024-06-02 15:51 | NUR ---
DCP: HOME Pt lives at home with her [place] [phone] and their kids. Pt is seen at [facility] for medical care and meds. Uses [facility] for rx. Pt is independent of her ADLS, no DMe or HH. Denies dc needs, will return home at dc Addendum: 06/02/24 at 1552 by XENIA OBRIEN Amended: Links added.
[2024-06-02] MEDS: cefTRIAXone 1G VIAL IVPB SCH (20:50)
[2024-06-03] VITALS (17 sets, daily range): BP systolic 101–132; BP diastolic 49–71; PULSE 61–100; RESP 16–20; TEMP 97.5–97.9; O2SAT 95–98
--- NOTE | 2024-06-03 15:25 | PN ---
[facility] PROGRESS NOTE Date of Service: Jun 03, 2024 Time of Service: 15:24 SUBJECTIVE: This is a 53-year-old female with a significant medical history of bronchitis, seasonal allergies, obesity and asthma presents to the ED for complaints of shortness of breaths, sore throat, cough and enlarged right cervical lymph nodes which started six days prior to .Patient states she has been sick prior to and she went to an urgnt care which she received and IM injection of steroid and was told she has acute pharyngitis and Bronchitis she said and was sent home and was told to see her PCP but she has not been able to follow up a PCP and patient started having fever since yesterday and states it is painful to swallow.and having headache as well for which she took Ibuprofen and came to the ED for evaluation. Upon arrival to ER patient's temperature 101.7, heart rate 134 BP 143/80 saturation 95% on room air. Latest vital signs temperature 98.6, heart rate 103, blood pressure 108/55 saturation 96% on room air. Labs: WBC 32.5, hemoglobin 13.6, hematocrit 42, platelet count 395. Chemistries unremarkable. BNP 17 lactic acid 2.5 influenza a and B negative, SARs COVID negative rapid strep throat negative. Chest x-ray result is unremarkable. While in the ER patient received cetirizine 5 mg p.o., Tylenol 1000 mg p.o., Rocephin 1 g IV, azithromycin 250 mg p.o. started on LR at 125 mL/hour, albuterol neb, Solu-Medrol 125 mg IV and Toradol 15 mg IV. ER called and recommended to admit the patient. 06/02/24 patient was seen and examined case discussed with RN. She was slightly feeling better still hoarse is coughing 06/03/24 The patient reports improvement in fever and energy levels but continues to experience mild shortness of breath and productive cough. She denies chest pain, hemoptysis, pleuritic chest pain, her gastrointestinal symptoms. She states adherence to her medications and tolerates oral intake well. Her total input was 1400 mL orally. A lab results revealed a WBC count of 26.7 K which im proved from / 0.5 K yesterday and albumin level is 2.6 and random blood glucose is 181. And sputum Gram stain revealed positive for Gram-positive cocaine clusters and chains. And her blood culture is negative. In addition to ceftriaxone she is being added vancomycin for her broad-spectrum and Gram- positive cocci coverage. REVIEW OF SYSTEMS CONSTITUTIONAL: Complaints of fever Denies night sweats. No unintentional weight loss reported. NEUROLOGICAL: Complain of headache Denies amaurosis fugax, motor weakness, sensory deficit, vertigo/spinning sensation, gait abnormalities, or tremors. ENT: Complain of sore throat and voice hoarseness No hearing loss, otalgia, otorrhea, rhinitis, rhinorrhea CARDIOVASCULAR: Denies any exertional angina, dyspnea on exertion, orthopnea, paroxysmal nocturnal dyspnea, palpitations, life-threatening arrhythmias, claudication. PULMONARY: Complain of mild shortness of breath and productive cough Denies hemoptysis, pleuritic chest pain. SLEEP: Denies morning headaches, daytime somnolence or napping. Denies difficulty falling asleep, staying asleep, waking from sleep. Denies knowledge of snoring. GASTROINTESTINAL: Denies any type of dysphagia to either liquids or solids. Denies nausea, vomiting, pyrosis, early satiety, abdominal pain, diarrhea, constipation, or changes in stool consistency or caliber. Denies coffee-ground emesis, hematemesis, hematochezia, or melanotic stools. GENITOURINARY: Denies frequency, urgency, nocturia, hematuria or incontinence (Storage/Irritative symptoms.) Low urinary stream, straining to void, urinary intermittency or hesitancy, splitting of the voiding stream, terminal dribbling. ENDOCRINOLOGIC: Denies polyuria, polydipsia, polyphagia or heat/cold intolerances. HEMATOLOGIC: Denies thrombophilia/previous clots, or coagulopathy/bleeding disorders. ONCOLOGIC: Denies personal history of malignancy. DERMATOLOGIC: Denies rashes or pruritus. PSYCHIATRIC: Denies any suicidal or homicidal ideation. Denies hallucinations. PHYSICAL EXAM GENERAL APPEARANCE: The patient is awake, alert, and oriented, in no acute cardiopulmonary distress. NEUROLOGICAL: Cranial nerves II-XII grossly intact. Motor is 5/5 in bilateral upper and lower extremities proximal to distal. No sensory deficits. HEENT: Face is symmetric. Pupils are equal and reactive. Extraocular movements are intact. NECK: Supple. No JVD. No thyromegaly. No submental, submandibular, pre- /postauricular, occipital or supraclavicular lymphadenopathy. CHEST: Normal chest expansion. No Telemetry. LUNGS: Absence of any rales, rhonchi or any wheezing. CARDIOVASCULAR: Regular. S1 and S2 normal. No appreciable rubs, murmurs or gallops. ABDOMEN: Soft, nontender, and nondistended. There is no rebound, voluntary guarding, or rigidity. : Deferred. No [place]. EXTREMITIES: Non-edematous and not cyanotic. No clubbing. Good capillary refill. SKIN: No skin breakdown. Vital Signs (last 8hr) Date Time Temp Pulse Resp B/P (MAP) Pulse Ox O2 Delivery O2 Flow Rate FiO2 06/03/24 14:16 100 20 06/03/24 12:00 97.7 79 16 124/67 94 Room Air 06/03/24 10:29 96 20 N/A Room Air 21 06/03/24 10:27 96 20 06/03/24 08:00 97 Room Air* 0 21 06/03/24 07:50 97.5 79 18 118/71 97 Room Air LABS: Laboratory: Test 06/02/24 04:13 06/01/24 20:29 06/01/24 20:04 Range/Units White Blood Count 26.0 H 4.8-10.8 K/uL Red Blood Count 4.48 4.00-5.50 MIL/uL Hemoglobin 12.0 12.0-16.0 g/dL Hematocrit 38.2 36-48 % Mean Corpuscular Volume 85.3 79-99 fL Mean Corpuscular Hemoglobin 26.8 L 27.0-33.0 pg Mean Corpuscular Hemoglobin Concent 31.4 L 32.0-36.0 g/dL Red Cell Distribution Width 14.0 11.0-15.5 % Platelet Count 367 130-400 K/uL Mean Platelet Volume 8.6 7.5-10.5 fL Immature Granulocyte % (Auto) 1.1 H 0-1 % Neutrophils (%) (Auto) 91.6 H 40.0-77.0 % Lymphocytes (%) (Auto) 6.5 L 21.0-51.0 % Monocytes (%) (Auto) 0.6 L 3.0-13.0 % Eosinophils (%) (Auto) 0.0 0.0-8.0 % Basophils (%) (Auto) 0.2 0.0-5.0 % Neutrophils # (Auto) 23.9 H 1.8-7.7 K/uL Lymphocytes # (Auto) 1.7 1.0-4.8 K/uL Monocytes # (Auto) 0.2 0.1-1.0 K/uL Eosinophils # (Auto) 0.01 0.00-0.70 K/uL Basophils # (Auto) 0.04 0.00-0.20 K/uL Absolute Immature Granulocyte (auto 0.28 0-1 K/uL Nucleated Red Blood Cells 0.0 0.0-0.19 % Erythrocyte Sedimentation Rate 70 H 0-30 MM/HR Sodium Level 139 136-145 mmol/L Potassium Level 4.4 3.5-5.1 mmol/L Chloride Level 107 101-111 mmol/L Carbon Dioxide Level 24 21-32 mmol/L Blood Urea Nitrogen 17 7-18 mg/dL Creatinine 0.7 0.5-1.0 mg/dL Glomerular Filtration Rate Calc 103 >90 mL/min Random Glucose 181 #H 70-105 mg/dL Lactic Acid Level 1.5 0.8-2.5 mmol/L Total Calcium 8.7 8.5-10.1 mg/dL Magnesium Level 1.90 1.80-2.40 mg/dL Total Bilirubin 0.2 0.2-1.0 mg/dL Aspartate Amino Transf (AST/SGOT) 13 10-37 U/L Alanine Aminotransferase (ALT/SGPT) 21 12-78 U/L Alkaline Phosphatase 128 50-136 U/L Total Protein 7.2 6.0-8.3 g/dL Albumin 2.6 L 3.5-5.0 g/dL Influenza Type A Antigen Negative For Type A NEGATIVE Influenza Type B Antigen Negative For Type B NEGATIVE SARS-CoV-2, RNA, NAAT NEGATIVE SARS CoV-2 NEGATIVE Group A Streptococcus Rapid negative NEGATIVE Segmented Neutrophils % 75 H 40-70 % Lymphocytes % (Manual) 14 L 22-44 % Monocytes % (Manual) 7 2-9 % Eosinophils % (Manual) 4 1-6 % Differential Comment MANUAL DIFFERENTIAL White Cell Morphology Comment CONSISTENT W/DIFF Platelet Morphology Comment ADEQUATE Red Blood Cell Morphology NORMAL B-Type Natriuretic Peptide 17 0-100 pg/mL Current Medications Medications (Trade) Dose Ordered Sig/Keisha Route PRN Reason Start Time Stop Time Status Last Admin Dose Admin Acetaminophen (TYLenol 325MG TAB) 650 mg Q4H PRN PO MILD PAIN (1-3) 06/01/24 22:30 07/01/24 22:29 Acetaminophen (TYLenol 325MG TAB) 650 mg Q6H PRN PO TEMPERATURE GREATER THAN 101.5 06/01/24 22:30 07/01/24 22:29 Albuterol (DUOneb) 1 udvial [id number] IH 06/02/24 02:00 07/02/24 01:59 06/03/24 14:14 1 UDVIAL Azithromycin (Zithromax) 250 mg Q24H PO 06/01/24 21:30 06/01/24 22:49 DC 06/01/24 21:24 250 MG Ceftriaxone Sodium 1 gm/ Sodium Chloride 50 ml @ 100 mls/hr Q24H IV 06/01/24 22:30 06/01/24 23:02 DC Ceftriaxone Sodium (ROCEphine 1G INJ) 1 gm Q24H IVPB 06/02/24 21:30 06/12/24 21:29 06/02/24 20:50 1 GM Cetirizine HCl (ZYRtec 5 MG TABLET) 10 mg DAILY PO 06/02/24 09:00 07/02/24 08:59 06/03/24 08:19 10 MG Cetirizine HCl (ZYRtec 5 MG TABLET) 10 mg DAILY PO 06/02/24 09:00 06/01/24 22:51 DC Famotidine (Pepcid 20mg Vial) 20 mg Q24H IV 06/02/24 09:00 07/02/24 08:59 06/03/24 08:18 20 MG Guaifenesin/ Dextromethorphan (RobiTUSSin DM 200/20MG 10ML) 10 ml Q4H PRN PO COUGH 06/01/24 22:30 07/01/24 22:29 Methylprednisolone Sodium Succinate (Solu-medROL 40MG) 20 mg BID IVP 06/02/24 09:00 07/02/24 08:59 06/03/24 08:18 20 MG Ondansetron HCl (zoFRAN 4MG INJ) 4 mg Q6H PRN IV NAUSEA/VOMITING 06/01/24 22:30 07/01/24 22:29 Sodium Chloride 1,000 ml @ 100 mls/hr Q10H IV 06/01/24 22:30 07/01/24 22:29 06/03/24 08:19 100 MLS/HR Vancomycin HCl (Vancomycin Protocol) 1 each AD IV 06/03/24 15:30 06/08/24 18:00 UNV DIAGNOSTICS / RADIOLOGY: ATIENT: DBE DORSEY MR#: [id number] : 1970 SEX: F AGE: 53 LOCATION: [facility] ORDER 49 STATUS: REG ER REPORT#: [id number] SERVICE 47 REASON: Dyspnea/SOB ORDERING PHYSICIAN: PEPITO LANDAVERDE MD PROCEDURE: CXR1VW - CHEST 1VW CHEST 1VW CLINICAL HISTORY: Dyspnea/SOB COMPARISON: 09/03/2023 TECHNIQUE: Single view of the chest was obtained. FINDINGS: Lungs are clear. The cardiac size and mediastinum are unremarkable. The bony structures are within normal limits. IMPRESSION: No acute cardiopulmonary process identified. ASSESSMENT: Mild asthma exacerbation POA Acute pharyngitis with right cervical lymph adenopathy POA Sepsis POA Morbid obesity POA Severe leukocytosis POA PLAN: Patient is admitted to medical telemetry Advance diet NS @ 100 ml / hr x2 bags and re evaluate continue Rocephin and azithromycin 250 mg p.o. Vancomycin is added for her broad-spectrum Gram-positive coverage. Solu-Medrol 20 mg IV b.i.d. x2 doses and evaluate Famotidine 20 mg IV bid for GI prophylaxis We will replace electrolytes as needed per protocol We will add prn medication for fever,pain,cough ,nausea and vomiting We will reconcile home meds once medlist available We will request labs in am Further orders to follow depending on above results ATTESTATION BY PHYSICIAN I have seen and examined the patient. I reviewed the documentation, medical decision making, and treatment plan as noted by the mid-level provider above. I agree with the findings and plan of care. Travis Silva MD, RAGHAVA R MD Jun 03, 2024 15:25
[2024-06-03] MEDS ORDERED: VANCOMYCIN PROTOCOL PER PHARMACY IV SCH (15:30)
[2024-06-03] MEDS: VANCOMYCIN 2GM/500 ML BAG 500 ML IV ONE (17:39)
[2024-06-03] MEDS: COMPOUND IV REFRIGERATED 1 EACH MISC ONE (17:56)
[2024-06-04] VITALS (11 sets, daily range): BP systolic 107–149; BP diastolic 65–86; PULSE 59–86; RESP 16–20; TEMP 97.9–98.7; O2SAT 96
[2024-06-04] MEDS: VANCOMYCIN 1G/250ML KIT 250 ML IV SCH (03:53)
[2024-06-04 05:20] LABS: HEMATOCRIT 35.4 % (36-48); MEAN CORPUSCULAR HEMOGLOBIN 26.9 pg (27.0-33.0); MEAN CORPUSCULAR HGB CONC 31.4 g/dL (32.0-36.0); MEAN CORPUSCULAR VOLUME 85.9 fL (79-99); PLATELET COUNT (AUTO) 325 K/uL (130-400); RED BLOOD CELL COUNT(AUTO) 4.12 MIL/uL (4.00-5.50); RED CELL DISTRIBUTION WIDTH 14.6 % (11.0-15.5); WHITE BLOOD COUNT (AUTO) 19.5 K/uL (4.8-10.8)
[2024-06-04 05:43] LABS: ALBUMIN 2.6 g/dL (3.5-5.0); BILIRUBIN,TOTAL 0.2 mg/dL (0.2-1.0); CREATININE 0.7 mg/dL (0.5-1.0); POTASSIUM 4.6 mmol/L (3.5-5.1); TOTAL PROTEIN, SERUM 6.9 g/dL (6.0-8.3)
[2024-06-04 07:36] LABS: LYMPHOCYTES % (MANUAL) 12 % (22-44); MAN.DIFF COMMENT-IMPRESSION MANUAL DIFFERENTIAL; MONOCYTES % (MANUAL) 3 % (2-9); SEGMENTED NEUTROPHILS % 85 % (40-70); TOTAL CELLS COUNTED 100
[2024-06-04 07:37] LABS: PLATELET MORPHOLOGY COMMENT ADEQUATE
[2024-06-04] MEDS ORDERED: ACET-2247 PO (16:30)
[2024-06-04] MEDS ORDERED: IPRA3AMP24 IH (16:30)
[2024-06-04] MEDS ORDERED: PRED10TA3 PO (16:30)
[2024-06-04] MEDS ORDERED: SULF1TAB41 PO (16:30)
[2024-06-04] MEDS ORDERED: AMOX-426 PO (16:30)
--- NOTE | 2024-06-04 16:40 | DS ---
Discharge Summary Hospital Course Summary: The patient was admitted with a complaint of fever, sore throat and hoarseness and productive cough and right cervical lymphadenopathy. Initial lab showed severe leukocytosis WBC count of 32k with a positive sputum Gram stain for Gram- positive cocci. She was started on IV ceftriaxone and azithromycin along with Solu-Medrol for mild asthma exacerbation. And she was in later added on to vancomycin for Gram-positive coverage. The patient showed progressive clinical improvement, with resolution of fever and reduction of leukocyte count 19.5k by discharge. Her asthma was well controlled with albuterol nebulization and IV steroids and her symptoms of pharyngitis improved with IV antibiotic therapy. She shortness she tolerated oral intake well and remained hemodynamically stable, and no further episodes of shortness of breaths or respiratory distress occurred. Given her improving clinical status, she is now transition to oral antibiotics for continued management and discharged home in stable condition. Post discharge plan continue oral Augmentin and Bactrim for 10 days as prescribed. Comprehensive metabolic panel in 10 days to assess kidney function ESR and CRP to monitor inflammatory markers. Continue Augmentin and Bactrim for 10 days. Dredge Pump Operator(s): Travis Silva MD, Christian E MD Procedure(s): PATIENT: DEB DORSEY MR#: [id number] : 1970 SEX: F AGE: 53 LOCATION: [facility] ORDER 49 STATUS: [facility] REPORT#: [id number] SERVICE 47 REASON: Dyspnea/SOB ORDERING PHYSICIAN: PEPITO LANDAVERDE MD PROCEDURE: CXR1VW - CHEST 1VW CHEST 1VW CLINICAL HISTORY: Dyspnea/SOB COMPARISON: 09/03/2023 TECHNIQUE: Single view of the chest was obtained. FINDINGS: Lungs are clear. The cardiac size and mediastinum are unremarkable. The bony structures are within normal limits. IMPRESSION: No acute cardiopulmonary process identified. Assessment/Plan: ASSESSMENT: Mild asthma exacerbation POA Acute pharyngitis with right cervical lymph adenopathy POA Sepsis POA Morbid obesity POA Severe leukocytosis POA PLAN: Patient is admitted to medical telemetry Advance diet NS @ 100 ml / hr x2 bags and re evaluate continue Rocephin and azithromycin 250 mg p.o. Vancomycin is added for her broad-spectrum Gram-positive coverage. Solu-Medrol 20 mg IV b.i.d. x2 doses and evaluate Famotidine 20 mg IV bid for GI prophylaxis We will replace electrolytes as needed per protocol We will add prn medication for fever,pain,cough ,nausea and vomiting We will reconcile home meds once medlist available We will request labs in am Further orders to follow depending on above results Discharge Instructions: ADMISSION DATE : May DISCHARGE DATE : May DISPOSITION : HOME CONDITION : STABLE CONSTRUCTION MANAGEMENT ASSISTANT(S) : Travis Silva MD, Christian E MD FOLLOW UP APPOINTMENT(S): Primary care physician appointment scheduled in 7 days to assess clinical improvement and medication tolerance. Follow-up in 2 weeks with glass bulb machine adjuster to review asthma control and adjust inhaler therapy if needed. Dietary consultation scheduled within2 weeks to address nutritional needs and create a weight management plan. IMAGING(S) : REPORTS ATTACHED TO SUMMARY. MICROBIOLOGY : REPORTS ATTACHED TO SUMMARY. ACTIVITY : AD GEENA HOME MEDICATION : CONTINUED TEACHING : REINFORCED THE IMPORTANCE OF MEDICATION COMPLIANCE AND FOLLOW-UP APPOINTMENTS. Home Medications: Discontinued Scripts Ibuprofen (Ibuprofen 800 mg Tab) 800 Mg Tab, 800 MG PO Q8H PRN for fever or pain, #30 TAB 0 Refills Prov:BRAXTON RUST NP 09/27/23 Clindamycin HCl (Clindamycin HCl) 300 Mg Capsule, 1 CAP PO QID for 10 Days, #40 CAP 0 Refills Prov:BRAXTON RUST NP 09/27/23 Methylprednisolone (Medrol) 4 Mg Tab.ds.pk, 4 MG PO AD, #1 PACK 0 Refills Prov:SHANIA RESTREPO Sr., MD 09/03/23 Albuterol Sulfate (Albuterol Sulfate) 2.5 Mg/0.5 Ml Vial.neb, 2.5 MG IH Q6H for wheezing/sob, #20 INH 2 Refills Prov:SHANIA RESTREPO Sr., MD 09/03/23 Clindamycin HCl (Clindamycin HCl) 300 Mg Capsule, 1 CAP PO QID for 10 Days, #40 CAP 0 Refills Prov:BRAXTON RUST NP 08/24/23 Prednisone (Prednisone) 10 Mg Tablet, 10 MG PO DAILY, #7 TAB Prov:COLUMBA RAHMAN Jr. FARM TRACTOR MECHANIC 11/19/23 Albuterol Sulfate (Ventolin Hfa/Proventil Hfa/Proair Hfa) 90 Mcg/Puff Puff, 1-2 PUFF IH Q4H PRN for SHORTNESS OF BREATH for 5 Days, #1 INH 3 Refills PHARMACY TO DISPENSE 1 INHALER FOR USE Prov:BERT العراقي MD 10/01/22 Prednisone (Prednisone) 20 Mg Tablet, 40 MG PO DAILY for 7 Days, #14 TAB 0 Refills Prov:BERT العراقي MD 10/01/22 Fluticasone/Vilanterol (Breo Ellipta 200-25 Mcg INH) 1 Each Blst.w.dev, 1 EACH IH DAILY for ASTHMA for 30 Days, #30 DAYS 1 Refill Prov:PEPITO SEALS Jr., MD 08/11/22 Montelukast Sodium (Montelukast Sodium) 10 Mg Tablet, 10 MG PO HS for ASTHMA for 30 Days, #30 TAB 0 Refills Prov:PEPITO SEALS Jr., MD 08/11/22 Cetirizine HCl (Zyrtec) 10 Mg Capsule, 10 MG PO DAILY for 30 Days, #30 CAP 1 Refill Prov:PEPITO SEALS Jr., MD 08/11/22 Albuterol Sulfate (Albuterol Sulfate) 2.5 Mg/3 Ml Vial.neb, 2.5 MG IH QIDP PRN for SHORTNESS OF BREATH/WHEEZING for 14 Days, #42 INH 1 Refill Prov:PEPITO SEALS Jr., MD 08/11/22 Albuterol Sulfate (Proair Digihaler) 90 Mcg Aer.pw.bas, 90 MCG IH QIDP PRN for SHORTNESS OF BREATH/WHEEZING for 30 Days, #30 DAYS 3 Refills Prov:PEPITO SEALS Jr., MD 08/11/22 New Medications: Amoxicillin/Potassium Clav (Augmentin 500-125 Tablet) 500 Mg-125 Mg Tablet 1 TAB PO BID for 10 Days, #20 TAB 0 Refills Prednisone (Prednisone) 10 Mg Tablet 10 TAB PO BID for 7 Days, #10 TAB 0 Refills 1st 3 days b.i.d. then followed by that last 4 days OD Sulfamethoxazole/Trimethoprim (Bactrim 400-80 mg Tablet) 400 Mg-80 Mg Tablet 1 TAB PO BID for 10 Days, #20 TAB 0 Refills Acetaminophen (Tylenol) 325 Mg Tablet 650 MG PO Q6H PRN for TEMPERATURE GREATER THAN 101.5, #15 TAB Ipratropium/Albuterol Sulfate (Iprat-Albut 0.5-3(2.5) mg/3 ml) 0.5 Mg-3 Mg (2.5 Mg Base)/3 Ml Ampul.neb 1 UDVIAL IH [id number], #60 - 1 Refill Time spent arranging discharge: 31-60 minutes ATTESTATION BY PHYSICIAN I have seen and examined the patient. I reviewed the documentation, medical de cision making, and treatment plan as noted by the mid-level provider above. I agree with the findings and plan of care. Travis Silva MD, RAGHAVA R MD Jun 04, 2024 16:40
--- NOTE | 2024-06-04 19:00 | NUR ---
DISCHARGE PAPERS GIVEN TO PATIENT , ANTIBIOTICS TO CONTINUE HI MD SCRIPT REVIEWED WITH PATIENT.
== END 2024-06-04 19:12 | disposition home or self-care (01) | DRG 872 ==
LOC: EDH 19:33 → EDHIP 22:19 → 4BH 23:44
PROVIDERS: ADMIT Internal Medicine; ATTEND Internal Medicine
DX: A41.9 Sepsis, unspecified organism (principal); J45.901 Unspecified asthma with (acute) exacerbation; Z68.41 Body mass index [BMI] 40.0-44.9, adult; Z20.822 Contact with and (suspected) exposure to COVID-19; J02.9 Acute pharyngitis, unspecified; R59.0 Localized enlarged lymph nodes; E66.01 Morbid (severe) obesity due to excess calories; Z98.891 History of uterine scar from previous surgery; Z88.8 Allergy status to other drugs, medicaments and biological substances
CPT/HCPCS: 36415; 71045; 80048; 80053; 83605; 83735; 83880; 85025; 85651; 87040; 87071; 87205; 87635; 87804; 87880; 94640; 94664; 96374; 96375; 99285; G0378; J0696; J1885; J2919; J3370; J3490; J7030; J7120

== ENCOUNTER 2025-02-12 10:04 | Emergency (ER) | payer SELFPAY ==
[~2025-02-12] VITALS: Ht 139.7 cm; Wt 80.7 kg
[~2025-02-12 10:04] MED LIST changes: +ACET-2247 PO; -ALBU2.5V2 IH; -ALBU90AE3 IH; -ALBUHFA IH; +AMOX-426 PO; -AUD IH; -CETI10CA5 PO; -CLIN-141 PO; -FLUT1BLS IH; -IBUP-2077 PO; +IPRA3AMP24 IH; -METH4TAB3 PO; -MONT-39 PO; -PRED20TA3 PO; +SULF1TAB41 PO
[2025-02-12 10:06] VITALS: BP 120/70; PULSE 74; RESP 18; TEMP 97.4
[2025-02-12] MEDS ORDERED: IBUP-2077 PO (10:18)
--- NOTE | 2025-02-12 10:19 | ERN ---
ED Note History of Present Illness Stated Complaint: SKIN LESSION Chief Complaint: Skin Rash/Abscess Time Seen by MD: 10:07 Dictation: Patient is a 54-year-old female here with two skin lesions to her posterior right shoulder she has had for four days. No fever no chills no nausea no vomiting. She states she went to the urgent care and was diagnosed with a possible infection was prescribed cephalexin two days ago in his just started it yesterday. She has no primary care doctor. The area is not tender there was no fluctuation no induration. Allergies: Coded Allergies: levofloxacin (Unverified Allergy, Mild, RASH, 08/27/15) Home Meds Active Scripts Prednisone (Prednisone) 10 Mg Tablet, 10 TAB PO BID for 7 Days, #10 TAB 0 Ref ills 1st 3 days b.i.d. then followed by that last 4 days OD Prov:GLEN GREENWOOD MD 06/04/24 Sulfamethoxazole/Trimethoprim (Bactrim 400-80 mg Tablet) 400 Mg-80 Mg Tablet, 1 TAB PO BID for 10 Days, #20 TAB 0 Refills Prov:GLEN GREENWOOD MD 06/04/24 Amoxicillin/Potassium Clav (Augmentin 500-125 Tablet) 500 Mg-125 Mg Tablet, 1 TAB PO BID for 10 Days, #20 TAB 0 Refills Prov:GLEN GREENWOOD MD 06/04/24 Ipratropium/Albuterol Sulfate (Iprat-Albut 0.5-3(2.5) mg/3 ml) 0.5 Mg-3 Mg (2.5 Mg Base)/3 Ml Ampul.neb, 1 UDVIAL IH [id number], #60 - 1 Refill Prov:GLEN GREENWOOD MD 06/04/24 Acetaminophen (Tylenol) 325 Mg Tablet, 650 MG PO Q6H PRN for TEMPERATURE GREATER THAN 101.5, #15 TAB Prov:GLEN GREENWOOD MD 06/04/24 Past Medical History Past Medical History: Asthma Additional Past Medical Hx: SEASONAL ALLERGIES, Obesity Surgical History: Additional History Comments: mother with pulmonary fibrosis, sister with cholesterol Family History: Negative Social History: Negative, Other History: Not Applicable RN Note Reviewed/Agreed w/PFSH: Yes Review of System Dictation CONSTITUTIONAL: Negative except for HPI HEAD/FACE: Negative except for HPI EENT: Negative except for HPI RESPIRATORY: Negative except for HPI GASTROINTESTINAL/ABDOMINAL: Negative except for HPI GENITOURINARY: Negative except for HPI MUSCULOSKELETAL: Negative except for HPI INTEGUMENTARY: Negative except for HPI to erythematous lesions to posterior right shoulder. NEUROLOGICAL/PSYCH: Negative except for HPI HEMATOLOGIC/LYMPHATIC: Negative except for HPI All Systems Negative, Except as noted above. 13 point review of systems assessed and all negative except for above. Initial Vital Sign VS Vital Signs Date Time Temp Pulse Resp B/P (MAP) Pulse Ox O2 Delivery O2 Flow Rate FiO2 02/12/25 10:06 97.3 74 18 120/70 94 Room Air 0 Physical Exam Dictation Vital Signs reviewed General Appearance: Alert, oriented x 3, mild acute distress, well developed, nourished. Head and Face: non-traumatic. Eyes: PERRL, pink conjunctivas, eyelid no trauma, anterior chamber with arcus senilis. Ears: Pinnas intact and no signs of trauma or erythema ear canals clear and no discharge TM no erythema Nose: No discharge, no bleeding. Oropharynx: Mouth normal, tongue pink, pharynx clear,no erythema, tonsils no exudates, no abscesses noted, mucous membrane moist Neck: Supple, non-tender, no thyromegaly, no masses, no JVD, no bruits Breast:Deferred Chest:No tenderness, no crepitus, no paradoxical movement, no retractions Lungs:Clear, well-ventilated, symmetric, no rales, no wheezing, no rhonchi, no stridor, good breath sounds bilaterally Heart: Regular rate, regular rhythm, no murmur, no gallops Vascular: no peripheral edema, Abdomen: Soft, positive bowel sounds, nondistended, no guarding, nontender, no rebound, no masses no hepatomegaly, no splenomegaly, no River's sign, no hernias. Rectal: Deferred Genital: Deferred Neurological: Normal speech, motor function intact, sensory function intact Musculoskeletal: Neck nontender, full range of motion, back nontender, full range of motion, Extremities: nontender, full range of motion Skin: Color pink, dry, to circular lesions to the posterior right shoulder with erythema. No induration no fluctuance. Distal lesion is tender to touch. Lymphatic: Deferred Results (Laboratory/Radiology) Labs Reviewed?: Yes ED Course ED Course Vital Signs Date Time Temp Pulse Resp B/P (MAP) Pulse Ox O2 Delivery O2 Flow Rate FiO2 02/12/25 10:06 97.3 74 18 120/70 94 Room Air 0 1015/no labs or imaging indicated. Patient is on cephalexin 500 mg b.i.d.. She will be referred to Dr. Maier for further evaluation treatment Medical Decision Making MDM Medical decision-making based on physical examination and HPI. No labs or imaging indicated at this time. Patient has been treated at urgent care with cephalexin 500 mg b.i.d.. Discharged home with referral to surgeon in the next Two days if it gets worse We will be prescribed ibuprofen for pain DX & DISP Disposition: Discharge Departure Impression: Primary Impression: Infected insect bite of right shoulder Condition: Stable Scripts Ibuprofen (Ibuprofen 800 mg Tab) 800 Mg Tab 800 MG PO Q8H PRN for fever or pain, #30 TAB 0 Refills Prov: BRAXTON RUST NP 02/12/25 Additional Instructions: Follow-up with primary care provider in 1 to 2 days. Take medications as directed here in the emergency room. Okay to continue home medications unless otherwise discussed during your visit in the emergency room today. Return to your nearest emergency room if symptoms worsen or if there is no improvement. Call 911 if you need immediate assistance. Take Tylenol or Motrin [id number] as needed and if no contraindications are present. Increase oral hydration. A wound culture or urine culture was ordered here in the emergency room department please follow-up with primary care provider and advise them to get repeat ports from our facility. If you had any Aneesh wrap/splints that were applied here, please do not remove them until you see your primary care or specialty. Continue antibiotics from your visit to the urgent care until they are gone. Call surgeon for an appointment in the next 1-2 days if lesions do not approve on your back. Referrals: SELF,REFERRAL (PCP) ALICIA ROMEO MD Time of Disposition: 10:18 I have reviewed the case, and I agree with, Diagnosis and Plan BRAXTON RUST NP Feb 12, 2025 10:19
== END 2025-02-12 10:51 | disposition home or self-care (01) ==
LOC: EDH 10:04
DX: S40.261A Insect bite (nonvenomous) of right shoulder, initial encounter (principal); L08.9 Local infection of the skin and subcutaneous tissue, unspecified; J45.909 Unspecified asthma, uncomplicated; E66.9 Obesity, unspecified; Z79.52 Long term (current) use of systemic steroids; Z88.1 Allergy status to other antibiotic agents; Z98.890 Other specified postprocedural states; W57.XXXA Bitten or stung by nonvenomous insect and other nonvenomous arthropods, initial encounter
CPT/HCPCS: 99282